=== PATIENT | male | born 1945 | race Caucasian/White ===

== ENCOUNTER 2019-08-06 11:42 | Inpatient (IN) | payer MEDICARE, OTHER ==
[~2019-08-06] VITALS: Ht 180.3 cm; Wt 84.0 kg
[2019-08-06] MEDS ORDERED: LOPR1TAB6 PO (11:59)
[2019-08-06] MEDS ORDERED: SYNT88TA2 PO (11:59)
[2019-08-06] MEDS ORDERED: BUME1TAB3 PO (11:59)
[2019-08-06] MEDS ORDERED: NORV5TAB PO (11:59)
[2019-08-06] MEDS ORDERED: PRAD150C6 PO (11:59)
[2019-08-06] MEDS ORDERED: LOSA50TA88 PO (11:59)
[2019-08-06] MEDS ORDERED: ATOR1TAB21 PO (11:59)
[2019-08-06 12:14] LABS: BASO % 0.4 % (0.0-1.0); EOS # 0.1 10^3/uL (0.0-0.5); EOS % 0.8 % (0.0-3.0); HEMATOCRIT 38.1 % (42.0-52.0); HEMOGLOBIN 12.4 g/dl (13.5-17.5); LYMPH # 1.1 10^3/uL (1.5-5.0); LYMPH % 13.3 % (24.0-44.0); MEAN CORPUSCULAR HEMOGLOBIN 30.1 pg (27.0-33.0); MEAN CORPUSCULAR HGB CONC 32.5 g/dl (32.0-36.5); MEAN CORPUSCULAR VOLUME 92.5 fl (80.0-96.0); MONO # 1.1 10^3/uL (0.0-0.8); MONO % 12.5 % (0.0-5.0); NEUTROPHILS # 6.2 10^3/uL (1.5-8.5); NEUTROPHILS % 72.8 % (36.0-66.0); PLATELET COUNT, AUTOMATED 194 10^3/uL (150-450); RED BLOOD COUNT 4.12 10^6/uL (4.30-6.10); WHITE BLOOD COUNT 8.5 10^3/uL (4.0-10.0)
[2019-08-06] MEDS ORDERED: METOPROLOL 5 MG/5 ML VIAL As Ordered ONE (12:20)
[2019-08-06] MEDS: METOPROLOL 5 MG/5 ML VIAL IV SCH ×3 (12:22→12:35)
[2019-08-06 12:24] LABS: INR 1.5; PROTHROMBIN TIME 17.8 SECONDS (11.8-14.0)
[2019-08-06 12:45] LABS: ALBUMIN 3.3 GM/DL (3.2-5.2); ALT/SGPT 26 U/L (12-78); BILIRUBIN,DIRECT 0.2 MG/DL (0.0-0.2); BILIRUBIN,TOTAL 0.8 MG/DL (0.2-1.0); BLOOD UREA NITROGEN 20 MG/DL (7-18); CARBON DIOXIDE LEVEL 29 MEQ/L (21-32); CHLORIDE LEVEL 106 MEQ/L (98-107); CK-MB VALUE MASS 2.7 NG/ML (<3.6); CPK CREATINE PHOSPHOKINASE 111 U/L (39-308); GLOMERULAR FILTRATION RATE > 60.0 (>42); GLUCOSE, FASTING 112 MG/DL (70-100); LIPASE 87 U/L (73-393); MB/CK RELATIVE INDEX 2.43 (< OR =4); NT-PRO BNP 4999 PG/ML (<450); POTASSIUM SERUM 4.1 MEQ/L (3.5-5.1); SODIUM LEVEL 140 MEQ/L (136-145); THYROID STIMULATING HORMONE < 0.005 uIU/ML (0.358-3.740); TOTAL PROTEIN 6.4 GM/DL (6.4-8.2); TROPONIN I < 0.02 NG/ML (< 0.10)
--- NOTE | 2019-08-06 12:52 | REP ---
CHEST, SINGLE VIEW: Single view of the chest is performed. I have no prior study for comparison. There is cardiomegaly and pulmonary venous hypertension. No focal infiltrate is seen. There is calcification of the thoracic aorta. Mediastinal silhouette otherwise appears unremarkable. Dual-lead pacemaker is noted. Electronically Signed by Zachary Giang MD 08/06/2019 07:44 P
[2019-08-06] MEDS ORDERED: METOPROLOL TART 50 MG TAB PO ONE ×2 (13:00→14:00)
[2019-08-06] MEDS ORDERED: VITMTA PO (14:49)
[2019-08-06] MEDS ORDERED: AMIODARONE HCL 150 MG in IV 1 EA IV STA (15:21)
[2019-08-06 15:44] VITALS: BP 122/86
[2019-08-06] MEDS ORDERED: SLF 3 ML SYR IV PRN (16:00)
[2019-08-06] MEDS ORDERED: AMIODARONE 150MG/3ML INJ (J0282) IVP STA (16:56)
[2019-08-06] MEDS ORDERED: AMIODARONE HCL 150 MG in IV 1 EA IV ONE (17:00)
--- NOTE | 2019-08-06 17:32 | HPEPDOC ---
General Date of Admission Aug 06, 2019 at 14:52 Date of Service: Aug 06, 2019 Chief Complaint The patient is a 74-year-old male admitted with a reason for visit of Aicd Present,Double Chamber,Atrial Fibrillation. Source: Patient, RN/MD History of Present Illness 74 year old male with PMH of Afib s/p ablation on anticoagulation, Systolic CHF with EF of 25% s/p AICD improved EF of 50%, CKD 3, hypertension, hypothyroid drove up from [place] last week and was in his usual state of health till yesterday when he started having palpitations. He did not have any chest pressure or any dizziness or any SOB or cough. This morning he played golf and felt that his palpitation was not improving so came to the ED. In the ED he was found to be in Afib with RVR. He was given a total of 100 mg of po metoprolol and 3 doses of IV metoprolol and patient took his own metoprolol this am till his heart rate remained uncontrolled so the patient was admitted for Afib with RVR. ED provider spoke with Dr Gross who recommended the increased dose of metoprolol and then he recommended 2 doses of IV amiodarone. Home Medications Scheduled Amlodipine Besylate (Norvasc) 5 Mg Tablet, 5 MG PO QHS, (Reported) Atorvastatin Calcium (Atorvastatin Calcium) 20 Mg Tablet, 20 MG PO QHS, (Reported) Bumetanide (Bumetanide) 1 Mg Tablet, 1 MG PO DAILY, (Reported) Dabigatran Etexilate Mesylate (Pradaxa) 150 Mg Capsule, 150 MG PO BID, (Reported) Levothyroxine Sodium (Synthroid) 88 Mcg Tablet, 88 MCG PO DAILY, (Reported) Losartan Potassium (Losartan Potassium) 50 Mg Tablet, 50 MG PO BID, (Reported) Metoprolol Tartrate (Lopressor) 50 Mg Tablet, 50 MG PO BID, (Reported) Multivitamins (Thera M Plus Tablet) 1 Each Tablet, 1 TAB PO DAILY, (Reported) Allergies Coded Allergies: amoxicillin (Verified Allergy, Unknown, 08/06/19) clavulanic acid (Verified Allergy, Unknown, 08/06/19) Past Medical History Medical History H/o Systolic CHF with EF of 25% in s/p AICD improved EF to 50% A fib s/p ablation x 2 in Thoracic aortic aneurysm. 4.9 cm hypothyroid hypertension CKD back pain Surgical History left shoulder chronic dislocation fixed. back surgery Family History Significant Family History: Cancer (brother esophageal cancer ), Heart disease (brother) Social History * Smoker: former Smoker Alcohol: other (daily one alcoholic draink) Drugs: denies Recent Travel/Sick Contacts: Reports: Recent travel (Drove up from [place] last week. ) A-FIB/CHADSVASC A-FIB History Current/History of A-Fib/PAF?: Yes Current PO Anticoag Therapy: Yes Review of Systems Constitutional: Denies: Chills, Fever, Night Sweats Eyes: Denies: Pain, Vision change ENT: Denies: Head Aches, Ear Pain, Dysphagia Skin: Denies: Rash, Lesions, Breakdown Pulmonary: Denies: Dyspnea, Cough Cardiovascular: Reports: Palpitations Gastrointestinal: Denies: Nausea, Vomiting, Abdominal Pain, Diarrhea Genitourinary: Denies: Dysuria, Frequency, Incontinence, Retention Hematologic: Denies: Bruising, Bleeding Excessively Musculoskeletal: Reports: Back Pain Neurological: Denies: Weakness, Numbness, Change in speech, Confusion Psych: Reports: Mood Normal; Denies: Depression, Memory Issues Physical Examination General Exam: Positive: Alert, Cooperative, No Acute Distress Eye Exam: Positive: PERRLA, Conjunctiva & lids normal, EOMI; Negative: Sclera icteric ENT Exam: Positive: Atraumatic, Mucous membr. moist/pink, Pharynx Normal Neck Exam: Positive: Supple; Negative: JVD, thyromegaly Chest Exam: Positive: Clear to auscultation, Normal air movement Heart Exam: Positive: Tachycardic, Irregular Rhythm Telemetry: Positive: Atrial fibrillation Abdomen Exam: Positive: Normal bowel sounds, Soft; Negative: Tenderness, Hepatospenomegaly Extremity Exam: Positive: Edema (bilateral trace edema) Skin Exam: Positive: Nl turgor and temperature; Negative: Breakdown, Lesion Neuro Exam: Positive: Normal Gait, Normal Speech, Cranial Nerves 3-12 NL, Reflexes 2+ Vital Signs Vital Signs Date Time Temp Pulse Resp B/P (MAP) Pulse Ox O2 Delivery O2 Flow Rate FiO2 08/06/19 14:09 128 161/92 08/06/19 14:00 18 98 08/06/19 13:10 Room Air 08/06/19 11:42 97.7 Laboratory Data Labs 24H Laboratory Tests 2 08/06/19 12:00: Immature Granulocyte % (Auto) 0.2, Neutrophils (%) (Auto) 72.8H, Lymphocytes (%) (Auto) 13.3L, Monocytes (%) (Auto) 12.5H, Eosinophils (%) (Auto) 0.8, Basophils (%) (Auto) 0.4, Neutrophils # (Auto) 6.2, Lymphocytes # (Auto) 1.1L, Monocytes # (Auto) 1.1H, Eosinophils # (Auto) 0.1, Basophils # (Auto) 0.0, Nucleated Red Blood Cells % (auto) 0.0, Prothrombin Time 17.8H, Prothromb Time International Ratio 1.50, Anion Gap 5L, Glomerular Filtration Rate > 60.0, Calcium Level 9.0, Magnesium Level 2.0, Total Bilirubin 0.8, Direct Bilirubin 0.2, Aspartate Amino Transf (AST/SGOT) 26, Alanine Aminotransferase (ALT/SGPT) 26, Alkaline Phosphatase 87, Total Creatine Kinase 111, Creatine Kinase MB 2.7, Creatine Kinase MB Relative Index 2.43, Troponin I < 0.02, EG-Xal-J-Type Natriuretic Peptide 4999H, Total Protein 6.4, Albumin 3.3, Albumin/Globulin Ratio 1.1, Lipase 87, Thyroid Stimulating Hormone (TSH) < 0.005L 08/06/19 12:01: POC Troponin I (Misc) 0.01 08/06/19 12:03: POC Glucose (Misc Panel) 115H, POC Sodium (Misc Panel) 140, POC Potassium (Misc Panel) 3.9, POC Chloride (Misc Panel) 102, POC Total CO2 (Misc Panel) 27.0, POC Blood Urea Nitrogen (Misc Panel 20, POC Ionized Calcium (Misc Panel) 4.6, POC Creatinine (Misc Panel) 1.2, POC Hematocrit (Misc Panel) 39.0 CBC/BMP Laboratory Tests 08/06/19 12:00 Assessment/Plan 74 year old male with PMH of Afib s/p ablation on anticoagulation, Systolic CHF with EF of 25% s/p AICD improved EF of 50%, CKD 3, hypertension, hypothyroid drove up from [place] last week and was in his usual state of health till yesterday when he started having palpitations. He did not have any chest pressure or any dizziness or any SOB or cough. This morning he played golf and felt that his palpitation was not improving so came to the ED. In the ED he was found to be in Afib with RVR. He was given a total of 100 mg of po metoprolol and 3 doses of IV metoprolol and patient took his own metoprolol this am till his heart rate remained uncontrolled so the patient was admitted for Afib with RVR. ED provider spoke with Dr Gross who recommended the increased dose of metoprolol and then he recommended 2 doses of IV amiodarone. A fib with RVR received total of 150 mg of metoprolol po and 3 doses of IV metoprolol will give IV amiodarone followed by po amiodarone. patient used to be on amiodarone but was taken off it after 4 years last fall. telemetry. Pradexa, metoprolol. His TSH is very low this may be contributing. Systolic CHF Last reported EF of 50% improved from 25% [place] [address] no gross fluid overload at this time though pro BNP is elevated. will continue to monitor continue Bumetanide Hypertension continue losartan and metoprolol Hypothyroid TSH very low will check Ft3, and Ft4. will decrease synthroid from 88 to 75 mcg Plan / VTE VTE Prophylaxis Ordered?: Yes OFELIA MARTÍNEZ MD Aug 06, 2019 15:39
[2019-08-06 20:00] VITALS: BP 141/79
[2019-08-06] MEDS: amLODIPine 5 MG TAB PO SCH (20:13)
[2019-08-06] MEDS: DABIGATRAN ETEXILATE 75 MG CAP (PRADAXA) PO SCH (20:13)
[2019-08-06] MEDS: ATORVASTATIN 20 MG TAB PO SCH (20:13)
[2019-08-06] MEDS: DOCUSATE SODIUM 100 MG CAP PO SCH (20:13)
[2019-08-06] MEDS: LOSARTAN 50MG TABLET PO SCH (20:14)
[2019-08-06] MEDS: METOPROLOL TART 50 MG TAB PO SCH (20:15)
[2019-08-06] MEDS: SLF 3 ML SYR IV SCH (20:15)
[2019-08-07] VITALS: BP 124/89
[2019-08-07 04:00] VITALS: BP 147/85
[2019-08-07] MEDS ORDERED: LEVOTHYROXINE 75MCG TABLET (0.075MG) PO SCH (06:00)
[2019-08-07 06:36] LABS: BASO % 0.5 % (0.0-1.0); EOS # 0.3 10^3/uL (0.0-0.5); EOS % 3.6 % (0.0-3.0); HEMATOCRIT 36.2 % (42.0-52.0); LYMPH # 1.1 10^3/uL (1.5-5.0); LYMPH % 13.7 % (24.0-44.0); MEAN CORPUSCULAR HEMOGLOBIN 30.4 pg (27.0-33.0); MEAN CORPUSCULAR HGB CONC 33.1 g/dl (32.0-36.5); MEAN CORPUSCULAR VOLUME 91.6 fl (80.0-96.0); MONO # 1.1 10^3/uL (0.0-0.8); MONO % 14.1 % (0.0-5.0); NEUTROPHILS # 5.4 10^3/uL (1.5-8.5); NEUTROPHILS % 67.7 % (36.0-66.0); PLATELET COUNT, AUTOMATED 182 10^3/uL (150-450); RED BLOOD COUNT 3.95 10^6/uL (4.30-6.10)
[2019-08-07] MEDS: SLF 3 ML SYR IV SCH ×3 (06:44→20:14)
[2019-08-07 07:17] LABS: BLOOD UREA NITROGEN 15 MG/DL (7-18); CALCIUM LEVEL 8.5 MG/DL (8.8-10.2); CARBON DIOXIDE LEVEL 29 MEQ/L (21-32); CHLORIDE LEVEL 108 MEQ/L (98-107); CREATININE FOR GFR 1.01 MG/DL (0.70-1.30); FREE T3 6.3 PG/ML (2.2-4.0); FREE T4 2.58 NG/DL (0.76-1.46); GLOMERULAR FILTRATION RATE > 60.0 (>42); GLUCOSE, FASTING 98 MG/DL (70-100); POTASSIUM SERUM 3.7 MEQ/L (3.5-5.1); SODIUM LEVEL 142 MEQ/L (136-145)
[2019-08-07 07:31] VITALS: BP 138/92
[2019-08-07] MEDS: MULTIVITAMINS/MINERALS THERAP 1 TAB PO SCH (08:34)
[2019-08-07] MEDS: BUMETANIDE 1 MG TAB PO SCH (08:35)
[2019-08-07] MEDS: AMIODARONE 200 MG TAB (PACERONE) PO SCH ×2 (08:35→20:14)
[2019-08-07] MEDS: LOSARTAN 50MG TABLET PO SCH ×2 (08:35→20:12)
[2019-08-07] MEDS: METOPROLOL TART 50 MG TAB PO SCH (08:36)
[2019-08-07] MEDS: DOCUSATE SODIUM 100 MG CAP PO SCH ×2 (08:36→20:14)
[2019-08-07] MEDS: DABIGATRAN ETEXILATE 75 MG CAP (PRADAXA) PO SCH ×2 (08:36→20:12)
[2019-08-07 08:42] LABS: THYROID STIMULATING HORMONE 0.006 uIU/ML (0.358-3.740)
[2019-08-07 11:34] VITALS: BP 135/77
--- NOTE | 2019-08-07 13:31 | REP ---
REASON: Abnormal thyroid laboratory values. Right lobe of the thyroid gland measures 4.4 x 1.7 x 2.4 cm. Left lobe measures 4.1 x 1.4 x 1.7 cm. The isthmus measures 5 mm. In the right lobe of the thyroid gland, there is a 1.4 x 1 x 0.9-cm sized cystic and solid-appearing nodule. There are no other nodules noted. IMPRESSION: As above. Electronically Signed by Santos Abad DO 08/07/2019 05:03 P
--- NOTE | 2019-08-07 13:46 | ECHO ---
DATE OF PROCEDURE: 08/06/2019 DATE OF : 1945 AGE: 74 GENDER: Male HEIGHT: 71 inches WEIGHT: 189 pounds BODY SURFACE AREA: 2.06 m2 INPATIENT: PCU Room 3227 REFERRING PHYSICIAN: Dr. Mariana Monk INDICATION: Cardiac dysrhythmias. MEASUREMENTS: 2-D Measurements: RV: 4.2 cm LV: 4.8 cm Septum: 1.2 cm Posterior wall: 1.2 cm Aortic root: 4.2 cm Ascending aorta: 4.6 cm LA: 4.8 cm LVEF: 50-55% Doppler Measurements: AV: 1.1 m/sec LVOT: 0.8 m/sec LVOT diameter: 2.0 cm MV - E: 96 Early mitral deceleration time: 176 ms E prime medial: 5.6, E prime lateral: 8.6 Average E/E prime ratio: 13.5/PCWP 18.7 mmHg PV: 0.75 m/sec Pulmonary artery acceleration time: 95 ms RVSP: 38 mmHg IVC: 2.2 cm COMMENTS: Underlying atrial fibrillation with spontaneous narrow QRS complexes alternating with appropriate ventricular paced complexes average ventricular rate in the 90s per minute. Paced QRS complexes having an LVEDP configuration. M-mode and two-dimensional echocardiography was performed with pulsed, continuous wave, color flow and tissue Doppler studies. Borderline concentric left ventricle hypertrophy with intermittent mild septal and apical wall motion abnormality with right ventricular paced complexes but fairly normal-appearing wall motion with spontaneous narrow QRS complexes. Overall global resting systolic function is retained. Moderately dilated left atrium with at least mildly elevated estimated mean left atrial pressure. Normal right ventricular size and motion with Doppler evidence of mild pulmonary hypertension. Right atrium appeared to be mildly enlarged as did the inferior vena cava with slightly reduced respiratory collapse of the inferior vena cava suggestive of mean left atrial pressure of perhaps 10 mmHg. Mildly dilated aortic root and moderately dilated ascending aorta. Mild aortic valvular sclerosis without stenosis and only very mild to trace aortic insufficiency. Mild degenerative changes of his mitral valvular apparatus without LV inflow tract obstruction and no more than very mild insufficiency. Normal-appearing tricuspid valve with very mild insufficiency. Pacing leads could be visualized traversing right heart structures but no separate intracardiac mass. No pericardial effusion. MTDD
--- NOTE | 2019-08-07 14:54 | IPNPDOC ---
Text Note Date of Service The patient was seen on 08/07/19. NOTE Subjective: Patient is 74. Will male with a PMHx A. fib (s/p Ablation, on Pradaxa), Systolic CHF (EF: 25%) s/p AICD (improved to EF 50%), HTN, Hypothyroid ism, CKD3, who presented to the hospital after experiencing palpitations. Patient reported that he is recently from [place] approximately one week ago. Upon arrival to emergency room, patient was found to be in A. fib with RVR and was admitted to the hospital service for further evaluation and treatment. Case was discussed with strategic sourcing consultant, Dr. Gross, who had recommended resuming his amiodarone that was stopped 9 months prior. Patient also had lab work that revealed significantly suppressed TSH level. Patient was seen and examined at the bedside. Currently, patient reports that he's feeling slightly better but still experiences occasional palpitations. He denies any chest pain, shortness of breath, nausea, vomiting, abdominal pain, diarrhea, or urinary discomfort. Objective: Vitals (See below) General: Lying in bed, appears comfortable, AAOx3 HEENT: NC, AT CVS: +S1S2 Lungs: Fair air entry b/l, auscultation is without rhonchi, crackles or wheezing Abdomen: Soft, ND, NT Extremities: - Edema, - Calf tenderness Assessment and plan: A fib with RVR - Etiology unclear; possibly 2/2 hyperthyroid state? - Patient has reported some improvement of his palpitations - Denies any CP, SOB - Heart rate remains fluctuating between 80-120s - Cardiac markers negative - s/p Amiodarone IV - c/w Amiodarone / Metoprolol (at increased dose) - c/w full anticoagulation with Pradaxa Chronic, Systolic CHF - No evidence of fluid overload, appears compensated - Last reported EF of 50% improved from 25% after AICD in 2003 - ECHO 08/05: EF 50-55% - c/w Bumetanide HTN - BP well controlled - c/w Losartan and Amlodipine - Will increase dose of Metoprolol DLP - c/w Atorvastatin Hypothyroidism as an outpatient - TSH noted to be significantly suppressed; free T4 and total T3 elevated - Will check thyroid US - Will discontinue Synthroid DVT prophylaxis - c/w full anticoagulation with Pradaxa Disposition: - Will have PT / OT evaluation completed - Awaiting heart rate optimization VS,Fishbone, I+O VS, Fishbone, I+O Laboratory Tests 08/07/19 06:03 Vital Signs Date Time Temp Pulse Resp B/P (MAP) Pulse Ox O2 Delivery O2 Flow Rate FiO2 08/07/19 11:34 97.5 105 18 135/77 (96) Room Air 08/07/19 07:31 95 I&O- Last 24 Hours up to 6 AM 08/07/19 06:00 Intake Total 440 ml Output Total 1550 ml Balance -1110 ml JOSE ROSENTHAL MD Aug 07, 2019 14:54
[2019-08-07 15:13] VITALS: BP 121/74
[2019-08-07 20:00] VITALS: BP 147/94
[2019-08-07] MEDS: METOPROLOL TARTRATE 100 MG TAB PO SCH (20:13)
[2019-08-07] MEDS: ATORVASTATIN 20 MG TAB PO SCH (20:14)
[2019-08-07] MEDS: amLODIPine 5 MG TAB PO SCH (20:14)
[2019-08-08] VITALS: BP 136/75
[2019-08-08 04:00] VITALS: BP 138/87
[2019-08-08 05:28] LABS: BASO % 0.3 % (0.0-1.0); EOS # 0.3 10^3/uL (0.0-0.5); EOS % 3.8 % (0.0-3.0); HEMATOCRIT 37.2 % (42.0-52.0); HEMOGLOBIN 12.5 g/dl (13.5-17.5); LYMPH # 1.2 10^3/uL (1.5-5.0); LYMPH % 16.9 % (24.0-44.0); MEAN CORPUSCULAR HEMOGLOBIN 30.5 pg (27.0-33.0); MEAN CORPUSCULAR HGB CONC 33.6 g/dl (32.0-36.5); MEAN CORPUSCULAR VOLUME 90.7 fl (80.0-96.0); MONO # 1.2 10^3/uL (0.0-0.8); MONO % 15.7 % (0.0-5.0); NEUTROPHILS # 4.6 10^3/uL (1.5-8.5); NEUTROPHILS % 62.8 % (36.0-66.0); PLATELET COUNT, AUTOMATED 182 10^3/uL (150-450); WHITE BLOOD COUNT 7.3 10^3/uL (4.0-10.0)
[2019-08-08 05:48] LABS: BLOOD UREA NITROGEN 15 MG/DL (7-18); CALCIUM LEVEL 8.4 MG/DL (8.8-10.2); CARBON DIOXIDE LEVEL 29 MEQ/L (21-32); CHLORIDE LEVEL 107 MEQ/L (98-107); GLOMERULAR FILTRATION RATE > 60.0 (>42); GLUCOSE, FASTING 101 MG/DL (70-100); POTASSIUM SERUM 3.6 MEQ/L (3.5-5.1); SODIUM LEVEL 142 MEQ/L (136-145)
--- NOTE | 2019-08-08 06:23 | ECGEPIP ---
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: : 1945 Requested By: Althea Perdomo Order Number: [id number] Reading MD: Corky Green Measurements Intervals Dexter Rate: 120 P: UT: 0 QRS: -36 QRSD: 106 T: 114 QT: 310 QTc: 438 Interpretive Statements UNCERTAIN IRREGULAR RHYTHM ELECTRONIC VENTRICULAR PACEMAKER -- CONTOUR ANALYSIS BASED ON INTRINSIC RHYTHM MARKED LEFT AXIS DEVIATION LEFT VENTRICULAR HYPERTROPHY AND ST-T CHANGE POSSIBLE ANTERIOR MYOCARDIAL INFARCTION, OF INDETERMINATE AGE NONSPECIFIC ST T WAVE CHANGES DELAYED R WAVE PROGRESSION PVCS NO PRIOR ECG FOR COMPARISON Electronically Signed on 08-08-2019 6:23:11 EDT by Corky Green
[2019-08-08] MEDS: SLF 3 ML SYR IV SCH ×3 (06:45→20:17)
[2019-08-08 07:36] VITALS: BP 148/94
[2019-08-08] MEDS: LOSARTAN 50MG TABLET PO SCH ×2 (08:14→20:15)
[2019-08-08] MEDS: DOCUSATE SODIUM 100 MG CAP PO SCH ×2 (08:14→20:15)
[2019-08-08] MEDS: MULTIVITAMINS/MINERALS THERAP 1 TAB PO SCH (08:14)
[2019-08-08] MEDS: METOPROLOL TARTRATE 100 MG TAB PO SCH ×2 (08:14→20:16)
[2019-08-08] MEDS: BUMETANIDE 1 MG TAB PO SCH (08:14)
[2019-08-08] MEDS: DABIGATRAN ETEXILATE 75 MG CAP (PRADAXA) PO SCH ×2 (08:15→20:17)
[2019-08-08] MEDS: AMIODARONE 200 MG TAB (PACERONE) PO SCH ×4 (08:15→20:15)
--- NOTE | 2019-08-08 08:53 | IPNPDOC ---
Text Note Date of Service The patient was seen on 08/08/19. NOTE Subjective: Patient was seen and examined at the bedside. Currently, patient r eports that he's feeling slightly better but still experiences occasional palpitations. He denies any chest pain, shortness of breath, nausea, vomiting, abdominal pain, diarrhea, or urinary discomfort. Objective: Vitals (See below) General: sitting by the side of the bed, appears comfortable, AAOx3 HEENT: NC, AT CVS: +S1S2 Lungs: Fair air entry b/l, auscultation is without rhonchi, crackles or wheezing Abdomen: Soft, ND, NT, normal bowel sounds. Extremities: trace Edema at left ankle, - Calf tenderness Assessment and plan: Patient is 74. Will male with a PMHx A. fib (s/p Ablation, on Pradaxa), Systolic CHF (EF: 25%) s/p AICD (improved to EF 50%), HTN, Hypothyroidism, CKD3, who presented to the hospital after experiencing palpitations. Patient reported that he is recently from [place] approximately one week ago. Upon arrival to emergency room, patient was found to be in A. fib with RVR and was admitted to the hospital service for further evaluation and treatment. Case was discussed with supervisor cell operation, Dr. Gross, who had recommended resuming his amiodarone that was stopped 9 months prior. Patient also had lab work that revealed significantly suppressed TSH level. A fib with RVR - Etiology unclear; possibly 2/2 hyperthyroid state? - Patient has reported some improvement of his palpitations - Denies any CP, SOB - Heart rate remains fluctuating between 80-120s - Cardiac markers negative - s/p Amiodarone IV - c/w Amiodarone / Metoprolol. Dose of amiodarone increased. Metoprolol increased form home dosage. - c/w full anticoagulation with Pradaxa Chronic, Systolic CHF - No evidence of fluid overload, appears compensated - Last reported EF of 50% improved from 25% after AICD in 2003 - ECHO 08/05: EF 50-55% - c/w Bumetanide HTN - BP well controlled - c/w Losartan and Amlodipine , metoprolol. DLP - c/w Atorvastatin Hypothyroidism as an outpatient - Patient reports that it started last year around June and he was started on medications. Since then his Amiodarone have been stopped. Amiodrone may have caused the hypothyroid. Now as he has been off amiodarone he has become hyperthyroid from the Synthroid. - TSH noted to be significantly suppressed; free T4 and total T3 elevated - thyroid US shows a thyroid nodule in the right lobe with mixed cystic and solid component . Outpatient follow up. - Will discontinue Synthroid DVT prophylaxis - c/w full anticoagulation with Pradaxa Disposition: - Will have PT / OT evaluation completed - Awaiting heart rate optimization VS,[facility], I+O VS, Siani, I+O Laboratory Tests 08/08/19 04:49 Vital Signs Date Time Temp Pulse Resp B/P (MAP) Pulse Ox O2 Delivery O2 Flow Rate FiO2 08/08/19 08:14 117 08/08/19 08:14 148/94 08/08/19 07:36 97.4 18 93 Room Air I&O- Last 24 Hours up to 6 AM 08/08/19 05:59 Intake Total 1680 ml Output Total 3450 ml Balance -1770 ml OFELIA MARTÍNEZ MD Aug 08, 2019 08:53
[2019-08-08 11:48] VITALS: BP 123/79
[2019-08-08 15:55] VITALS: BP 113/71
[2019-08-08 20:00] VITALS: BP 131/80
[2019-08-08] MEDS: ATORVASTATIN 20 MG TAB PO SCH (20:15)
[2019-08-08] MEDS: amLODIPine 5 MG TAB PO SCH (20:16)
[2019-08-09] VITALS: BP 130/78
[2019-08-09 04:00] VITALS: BP 151/85
[2019-08-09 05:06] LABS: BASO % 0.4 % (0.0-1.0); EOS # 0.2 10^3/uL (0.0-0.5); EOS % 3.2 % (0.0-3.0); HEMATOCRIT 34.5 % (42.0-52.0); HEMOGLOBIN 11.4 g/dl (13.5-17.5); LYMPH # 1.6 10^3/uL (1.5-5.0); LYMPH % 22.8 % (24.0-44.0); MEAN CORPUSCULAR HEMOGLOBIN 30.2 pg (27.0-33.0); MEAN CORPUSCULAR VOLUME 91.5 fl (80.0-96.0); MONO # 1.3 10^3/uL (0.0-0.8); MONO % 17.6 % (0.0-5.0); NEUTROPHILS % 55.7 % (36.0-66.0); PLATELET COUNT, AUTOMATED 174 10^3/uL (150-450); RED BLOOD COUNT 3.77 10^6/uL (4.30-6.10); WHITE BLOOD COUNT 7.1 10^3/uL (4.0-10.0)
[2019-08-09 05:32] LABS: BLOOD UREA NITROGEN 16 MG/DL (7-18); CALCIUM LEVEL 8.4 MG/DL (8.8-10.2); CARBON DIOXIDE LEVEL 30 MEQ/L (21-32); CHLORIDE LEVEL 109 MEQ/L (98-107); CREATININE FOR GFR 1.02 MG/DL (0.70-1.30); GLOMERULAR FILTRATION RATE > 60.0 (>42); GLUCOSE, FASTING 101 MG/DL (70-100); POTASSIUM SERUM 3.8 MEQ/L (3.5-5.1); SODIUM LEVEL 144 MEQ/L (136-145)
[2019-08-09] MEDS: SLF 3 ML SYR IV SCH ×3 (06:16→20:58)
[2019-08-09 08:00] VITALS: BP 118/86
[2019-08-09] MEDS: BUMETANIDE 1 MG TAB PO SCH (08:59)
[2019-08-09] MEDS: LOSARTAN 50MG TABLET PO SCH ×2 (09:00→20:56)
[2019-08-09] MEDS: DABIGATRAN ETEXILATE 75 MG CAP (PRADAXA) PO SCH ×2 (09:00→20:55)
[2019-08-09] MEDS: AMIODARONE 200 MG TAB (PACERONE) PO SCH (09:00)
[2019-08-09] MEDS: METOPROLOL TARTRATE 100 MG TAB PO SCH ×2 (09:00→20:57)
[2019-08-09] MEDS: MULTIVITAMINS/MINERALS THERAP 1 TAB PO SCH (09:00)
[2019-08-09] MEDS: DOCUSATE SODIUM 100 MG CAP PO SCH ×2 (09:00→20:54)
--- NOTE | 2019-08-09 10:28 | IPNPDOC ---
Text Note Date of Service The patient was seen on 08/09/19. NOTE Subjective: Patient was seen and examined at the bedside. Says has some interm ittent palpitations at rest but not while he is walking. No other complaints. His pulse if about 100 to 110 at rest and 120 to 130 when ambulating. Objective: Vitals (See below) General: sitting by the side of the bed, appears comfortable, AAOx3 HEENT: NC, AT CVS: +S1S2 Lungs: Fair air entry b/l, auscultation is without rhonchi, crackles or wheezing Abdomen: Soft, ND, NT, normal bowel sounds. Extremities: trace Edema at left ankle, - Calf tenderness Labs and Radiology : reviewed. Assessment and plan: Patient is 74. Will male with a PMHx A. fib (s/p Ablation, on Pradaxa), Systolic CHF (EF: 25%) s/p AICD (improved to EF 50%), HTN, Hypothyroidism, CKD3, who presented to the hospital after experiencing palpitations. Patient reported that he is recently from [place] approximately one week ago. Upon arrival to emergency room, patient was found to be in A. fib with RVR and was admitted to the hospital service for further evaluation and treatment. Case was discussed with middleware developer, Dr. Gross, who had recommended resuming his amiodarone that was stopped 9 months prior. Patient also had lab work that revealed significantly suppressed TSH level. A fib with RVR Etiology unclear; possibly 2/2 hyperthyroid state? Heart rate remains fluctuating between 90-130s Cardiac markers negative s/p Amiodarone IV , oral amiodarone Discussed pateitn with Dr Godoy. Or approach should be rate control and we should avoid amiodarone as he had developed toxicity to it. If recommended digoxin loading. will stop amiodarone. Digoxin 0.5+ 0.25+0.25 Continue metoprolol 100 bid c/w full anticoagulation with Pradaxa Chronic, Systolic CHF No evidence of fluid overload, appears compensated Last reported EF of 50% improved from 25% after AICD in 2013 ECHO 08/05: EF 50-55% c/w Bumetanide HTN BP well controlled c/w Losartan and Amlodipine , metoprolol. DLP c/w Atorvastatin Hypothyroidism as an outpatient Patient reports that it started last year around June and he was started on medications. Since then his Amiodarone have been stopped. Amiodarone may have caused the hypothyroid. Now as he has been off amiodarone he has become hyperthyroid from the Synthroid. TSH noted to be significantly suppressed; free T4 and total T3 elevated thyroid US shows a thyroid nodule in the right lobe with mixed cystic and solid component . Outpatient follow up. Will discontinue Synthroid DVT prophylaxis c/w full anticoagulation with Pradaxa Disposition: Will have PT / OT evaluation completed Awaiting heart rate optimization VS,Sinai, I+O VS, [place], I+O Laboratory Tests 08/09/19 04:42 Vital Signs Date Time Temp Pulse Resp B/P (MAP) Pulse Ox O2 Delivery O2 Flow Rate FiO2 08/09/19 08:00 98.2 113 19 118/86 (97) 97 Room Air I&O- Last 24 Hours up to 6 AM 08/09/19 05:59 Intake Total 1560 ml Output Total 3500 ml Balance -1940 ml OFELIA MARTÍNEZ MD Aug 09, 2019 10:28
[2019-08-09] MEDS ORDERED: DIGOXIN INJ 0.5 MG/2 ML AMP (J1160) IV ONE ×2 (10:30→12:30)
[2019-08-09 12:00] VITALS: BP 132/70
[2019-08-09 16:00] VITALS: BP 136/62
[2019-08-09 20:00] VITALS: BP 150/68
[2019-08-09] MEDS: ATORVASTATIN 20 MG TAB PO SCH (20:55)
[2019-08-09] MEDS: amLODIPine 5 MG TAB PO SCH (20:55)
[2019-08-10] VITALS: BP 130/60
[2019-08-10 04:00] VITALS: BP 140/68
[2019-08-10] MEDS: SLF 3 ML SYR IV SCH ×2 (05:24→12:33)
[2019-08-10 05:58] LABS: BASO % 0.3 % (0.0-1.0); EOS # 0.3 10^3/uL (0.0-0.5); EOS % 4.4 % (0.0-3.0); HEMATOCRIT 35.6 % (42.0-52.0); HEMOGLOBIN 11.8 g/dl (13.5-17.5); LYMPH # 1.3 10^3/uL (1.5-5.0); LYMPH % 16.3 % (24.0-44.0); MEAN CORPUSCULAR HEMOGLOBIN 30.3 pg (27.0-33.0); MEAN CORPUSCULAR HGB CONC 33.1 g/dl (32.0-36.5); MEAN CORPUSCULAR VOLUME 91.3 fl (80.0-96.0); MONO # 1.3 10^3/uL (0.0-0.8); NEUTROPHILS # 4.9 10^3/uL (1.5-8.5); NEUTROPHILS % 62.7 % (36.0-66.0); PLATELET COUNT, AUTOMATED 178 10^3/uL (150-450); WHITE BLOOD COUNT 7.8 10^3/uL (4.0-10.0)
[2019-08-10 06:18] LABS: BLOOD UREA NITROGEN 17 MG/DL (7-18); CALCIUM LEVEL 8.3 MG/DL (8.8-10.2); CARBON DIOXIDE LEVEL 30 MEQ/L (21-32); CHLORIDE LEVEL 110 MEQ/L (98-107); CREATININE FOR GFR 1.07 MG/DL (0.70-1.30); GLOMERULAR FILTRATION RATE > 60.0 (>42); GLUCOSE, FASTING 93 MG/DL (70-100); POTASSIUM SERUM 3.6 MEQ/L (3.5-5.1); SODIUM LEVEL 145 MEQ/L (136-145)
[2019-08-10 08:00] VITALS: BP 142/84
[2019-08-10 08:59] VITALS: BP 142/84
[2019-08-10] MEDS: METOPROLOL TARTRATE 100 MG TAB PO SCH (08:59)
[2019-08-10] MEDS: MULTIVITAMINS/MINERALS THERAP 1 TAB PO SCH (08:59)
[2019-08-10] MEDS: LOSARTAN 50MG TABLET PO SCH (08:59)
[2019-08-10] MEDS ORDERED: DIGOXIN 0.25 MG TAB PO SCH (09:00)
[2019-08-10] MEDS: DOCUSATE SODIUM 100 MG CAP PO SCH (09:00)
[2019-08-10] MEDS ORDERED: LIDOCAINE 1% MDV 20ML VIAL As Ordered ONE (10:53)
[2019-08-10 12:00] VITALS: BP 142/86
[2019-08-10] MEDS: BUMETANIDE 1 MG TAB PO SCH (12:32)
[2019-08-10] MEDS: DABIGATRAN ETEXILATE 75 MG CAP (PRADAXA) PO SCH (12:32)
[2019-08-10] MEDS ORDERED: LOPR1TAB6 PO (12:39)
[2019-08-10] MEDS ORDERED: DIGO0.253 PO (12:39)
--- NOTE | 2019-08-10 15:17 | DS.PDOC ---
Discharge Summary General Date of Admission Aug 06, 2019 at 14:52 Date of Discharge 08/10/19 Discharge Summary PROCEDURES PERFORMED DURING STAY: [None]. DISCHARGE DIAGNOSES: Atrial fibrillation with RVR. Chronic Systolic CHF. SECONDARY DIAGNOSIS: H/o Systolic CHF with EF of 25% in s/p AICD improved EF to 50% A fib s/p ablation x 2 in Thoracic aortic aneurysm. 4.9 cm hypothyroid hypertension CKD back pain COMPLICATIONS/CHIEF COMPLAINT: AICD Present,Double Chamber,Atrial Fibrillation. HISTORY OF PRESENT ILLNESS: See history and physical HOSPITAL COURSE: Patient is 74. Will male with a PMHx A. fib (s/p Ablation, on Pradaxa), Systolic CHF (EF: 25%) s/p AICD (improved to EF 50%), HTN, Hypothyroidism, CKD3, who presented to the hospital after experiencing palpitations. Patient reported that he is recently from [place] approximately one week ago. Upon arrival to emergency room, patient was found to be in A. fib with RVR and was admitted to the hospital service for further evaluation and treatment. Case was discussed with quality manager, Dr. Gross, who had recommended resuming his amiodarone that was stopped 9 months prior. Patient also had lab work that revealed significantly suppressed TSH level. A fib with RVR Etiology unclear; possibly 2/2 hyperthyroid state? Heart rate now controlled. Remains in Afib. Cardiac markers negative s/p Amiodarone IV , s/p oral amiodarone as per discussion with Dr Gross. Now stopped. Discussed patient again with Dr Godoy as pulse rate was not well controlled. As per Dr Godoy Our approach should be rate control and we should avoid amiodarone as he had developed toxicity to it. He recommended digoxin loading. Patient was loaded with digoxin and started on digoxin 0.25 daily. Continue metoprolol 100 bid c/w full anticoagulation with Pradaxa Chronic, Systolic CHF No evidence of fluid overload, appears compensated Last reported EF of 50% improved from 25% after AICD in 2013 ECHO 08/05: EF 50-55% c/w Bumetanide HTN BP well controlled c/w Losartan and Amlodipine , metoprolol. DLP c/w Atorvastatin Hypothyroidism as an outpatient now hyperthyroid. Patient reports that it started last year around June and he was started on medications. Since then his Amiodarone have been stopped. Amiodarone may have caused the hypothyroid. Now as he has been off amiodarone he has become hyperthyroid from the Synthroid. TSH noted to be significantly suppressed; free T4 and total T3 elevated thyroid US shows a thyroid nodule in the right lobe with mixed cystic and solid component. Will discontinue Synthroid Had US guided FNAC on 08/10/19 DVT prophylaxis c/w full anticoagulation with Pradaxa Disposition: Will have PT / OT evaluation completed Awaiting heart rate optimization DISCHARGE MEDICATIONS: Please see below. ALLERGIES: Please see below. PHYSICAL EXAMINATION ON DISCHARGE: VITAL SIGNS: Please see below. General: sitting by the side of the bed, appears comfortable, AAOx3 HEENT: NC, AT CVS: +S1S2, no rub or murmur, rate normal, irregularly erregular. Lungs: Fair air entry b/l, auscultation is without rhonchi, crackles or wheezing Abdomen: Soft, ND, NT, normal bowel sounds. Extremities: trace Edema at left ankle, - Calf tenderness LABORATORY DATA: Please see below. IMAGING: Thyroid US: Right lobe of the thyroid gland measures 4.4 x 1.7 x 2.4 cm. Left lobe measures 4.1 x 1.4 x 1.7 cm. The isthmus measures 5 mm. In the right lobe of the thyroid gland, there is a 1.4 x 1 x 0.9-cm sized cystic and solid-appearing nodule. ACTIVITY: [As tolerated]. DIET: As tolerated DISCHARGE PLAN: Home DISPOSITION: . DISCHARGE INSTRUCTIONS: Referred to new PMD in 1 to 2 weeks ITEMS TO FOLLOWUP ON ON OUTPATIENT: Digoxin level. Thyroid profile FNAC report of Thyroid nodule aspiration. DISCHARGE CONDITION: [Stable]. TIME SPENT ON DISCHARGE: 35 minutes. Vital Signs/I&Os Vital Signs Date Time Temp Pulse Resp B/P (MAP) Pulse Ox O2 Delivery O2 Flow Rate FiO2 08/10/19 12:00 97.5 87 18 142/86 (104) 97 Room Air I&O- Last 24 Hours up to 6 AM 08/10/19 06:59 Intake Total 1740 ml Output Total 3575 ml Balance -1835 ml Laboratory Data Labs 24H Laboratory Tests 2 08/10/19 05:19: Immature Granulocyte % (Auto) 0.3, Neutrophils (%) (Auto) 62.7, Lymphocytes (%) (Auto) 16.3L, Monocytes (%) (Auto) 16.0H, Eosinophils (%) (Auto) 4.4H, Basophils (%) (Auto) 0.3, Neutrophils # (Auto) 4.9, Lymphocytes # (Auto) 1.3L, Monocytes # (Auto) 1.3H, Eosinophils # (Auto) 0.3, Basophils # (Auto) 0.0, Nucleated Red Blood Cells % (auto) 0.0, Anion Gap 5L, Glomerular Filtration Rate > 60.0, Calcium Level 8.3L CBC/BMP Laboratory Tests 08/10/19 05:19 Discharge Medications Scheduled Amlodipine Besylate (Norvasc) 5 Mg Tablet, 5 MG PO QHS, (Reported) Atorvastatin Calcium (Atorvastatin Calcium) 20 Mg Tablet, 20 MG PO QHS, (Reported) Bumetanide (Bumetanide) 1 Mg Tablet, 1 MG PO DAILY, (Reported) Dabigatran Etexilate Mesylate (Pradaxa) 150 Mg Capsule, 150 MG PO BID, (Reported) Digoxin (Digoxin) 250 Mcg Tablet, 0.25 MG PO DAILY Losartan Potassium (Losartan Potassium) 50 Mg Tablet, 50 MG PO BID, (Reported) Metoprolol Tartrate (Lopressor) 50 Mg Tablet, 100 MG PO BID Multivitamins (Thera M Plus Tablet) 1 Each Tablet, 1 TAB PO DAILY, (Reported) Allergies Coded Allergies: amoxicillin (Verified Allergy, Unknown, 08/06/19) clavulanic acid (Verified Allergy, Unknown, 08/06/19) OFELIA MARTÍNEZ MD Aug 10, 2019 15:17
--- NOTE | 2019-08-10 21:34 | REP ---
ULTRASOUND-GUIDED RIGHT THYROID BIOPSY The procedure was performed under the direct supervision of Dr. Giang. The patient has a history of A 1.4 x 1 x 0.9 cm cystic and solid appearing nodule in the right lobe of the thyroid seen on a previous ultrasound dated 08/07/2019. The risks and benefits of the procedure were explained to the patient and informed consent was obtained. The right thyroid nodule was localized using ultrasound guidance. The skin was prepped and draped in a sterile fashion. 1% lidocaine was used as a local anesthetic. Using ultrasound guidance four fine-needle aspirations were obtained using 25 gauge needles. The patient tolerated the procedure well and there were no immediate complications. After the appropriate amount of monitored convalescence the patient was discharged from the department. Electronically Signed by ANA Martinez 08/10/2019 04:23 P Electronically Signed by Zachary Giang MD 08/10/2019 09:25 P
== END 2019-08-10 13:05 | disposition home or self-care (01) | DRG 309 ==
LOC: M ED 11:42 → M ED INP 14:52 → ENRESERV 15:07 → M PCU 15:44
PROVIDERS: ADMIT Internal Medicine Nephrology; ATTEND Internal Medicine Nephrology
PROC: 0GBH3ZX Excision of Right Thyroid Gland Lobe, Percutaneous Approach, Diagnostic (ICD-10-PCS; principal; 2019-08-10 14:30)
DX: I48.91 Unspecified atrial fibrillation (principal); I50.22 Chronic systolic (congestive) heart failure; I13.0 Hypertensive heart and chronic kidney disease with heart failure and stage 1 through stage 4 chronic kidney disease, or unspecified chronic kidney disease; N18.3 Chronic kidney disease, stage 3 (moderate); I71.4 Abdominal aortic aneurysm, without rupture; E05.00 Thyrotoxicosis with diffuse goiter without thyrotoxic crisis or storm; Z79.899 Other long term (current) drug therapy; Z79.01 Long term (current) use of anticoagulants; Z88.0 Allergy status to penicillin; Z88.8 Allergy status to other drugs, medicaments and biological substances; Z87.891 Personal history of nicotine dependence

== ENCOUNTER → 2019-08-17 | Outpatient (REF) | payer MEDICARE, OTHER ==
[~2019-08-17] MED LIST: ASPI81CH33 PO; ATOR1TAB21 PO; BUME1TAB3 PO; CEFU50TA PO; DIGO0.253 PO; DOXY-350 PO; FISH1000 PO; GLUC1TAB58 PO; LOPR1TAB6 PO; LOSA50TA88 PO; METH10TA PO; METO100T5 PO; NORV5TAB PO; PRAD150C6 PO; PRES10CA2 PO; SYNT88TA2 PO; VITMTA PO; XARE15TA PO
[2019-08-17 18:51] LABS: BLOOD UREA NITROGEN 22 MG/DL (7-18); CALCIUM LEVEL 8.7 MG/DL (8.8-10.2); CARBON DIOXIDE LEVEL 29 MEQ/L (21-32); CHLORIDE LEVEL 105 MEQ/L (98-107); CREATININE FOR GFR 1.09 MG/DL (0.70-1.30); DIGOXIN LEVEL 1.6 NG/ML (0.5-2.0); FREE T4 2.62 NG/DL (0.76-1.46); GLOMERULAR FILTRATION RATE > 60.0 (>42); GLUCOSE, FASTING 104 MG/DL (70-100); POTASSIUM SERUM 4.2 MEQ/L (3.5-5.1); SODIUM LEVEL 141 MEQ/L (136-145); THYROID STIMULATING HORMONE < 0.005 uIU/ML (0.358-3.740)
== END ==
LOC: M SFHCCLAY 10:42
PROVIDERS: ATTEND Nurse Practitioner Family
DX: E04.9 Nontoxic goiter, unspecified (principal); I48.11 Longstanding persistent atrial fibrillation
CPT/HCPCS: 80048; 80162; 84439; 84443; G0463

== ENCOUNTER → 2019-08-25 | Outpatient (REF) | payer MEDICARE, OTHER ==
[~2019-08-25] MED LIST changes: -ASPI81CH33 PO
[2019-08-25 12:42] LABS: DIGOXIN LEVEL 2.3 NG/ML (0.5-2.0); THYROID STIMULATING HORMONE < 0.005 uIU/ML (0.358-3.740)
== END ==
LOC: M SFHCCLAY 08:44
PROVIDERS: ATTEND Nurse Practitioner Family
DX: E04.9 Nontoxic goiter, unspecified (principal); I48.11 Longstanding persistent atrial fibrillation; I10 Essential (primary) hypertension

== ENCOUNTER 2019-08-31 02:01 | Inpatient (IN) | payer MEDICARE, OTHER ==
[~2019-08-31] VITALS: Ht 180.3 cm; Wt 87.5 kg
[~2019-08-31 02:01] MED LIST changes: -CEFU50TA PO; -DOXY-350 PO; -FISH1000 PO; -GLUC1TAB58 PO; -METH10TA PO; -METO100T5 PO; -PRES10CA2 PO; -XARE15TA PO
[2019-08-31] MEDS ORDERED: PRES10CA2 PO (02:09)
[2019-08-31] MEDS ORDERED: METH10TA PO (02:09)
[2019-08-31] MEDS ORDERED: GLUC1TAB58 PO (02:09)
[2019-08-31] MEDS ORDERED: FISH1000 PO (02:09)
[2019-08-31] MEDS ORDERED: ACETAMINOPHEN TAB 650MG DOSE (2X325MG) PO ONE (02:30)
[2019-08-31 03:17] LABS: BASO % 0.1 % (0.0-1.0); EOS % 0.1 % (0.0-3.0); HEMATOCRIT 36.6 % (42.0-52.0); HEMOGLOBIN 11.9 g/dl (13.5-17.5); LYMPH # 0.2 10^3/uL (1.5-5.0); MEAN CORPUSCULAR HEMOGLOBIN 29.5 pg (27.0-33.0); MEAN CORPUSCULAR HGB CONC 32.5 g/dl (32.0-36.5); MEAN CORPUSCULAR VOLUME 90.6 fl (80.0-96.0); MONO # 0.2 10^3/uL (0.0-0.8); MONO % 2.2 % (0.0-5.0); NEUTROPHILS % 95.2 % (36.0-66.0); PLATELET COUNT, AUTOMATED 144 10^3/uL (150-450); RED BLOOD COUNT 4.04 10^6/uL (4.30-6.10); WHITE BLOOD COUNT 10.5 10^3/uL (4.0-10.0)
[2019-08-31] MEDS ORDERED: IBUPROFEN 800 MG TAB As Ordered ONE (03:19)
[2019-08-31] MEDS ORDERED: IBUPROFEN 800 MG TAB PO ONE (03:30)
[2019-08-31] MEDS ORDERED: NS 1,000 ML IV ONE (03:30)
[2019-08-31 04:06] LABS: ALBUMIN 3.2 GM/DL (3.2-5.2); BILIRUBIN,DIRECT 0.3 MG/DL (0.0-0.2); BILIRUBIN,TOTAL 0.8 MG/DL (0.2-1.0); TOTAL PROTEIN 6.3 GM/DL (6.4-8.2)
[2019-08-31] MEDS ORDERED: DOXYCYCLINE HYCLATE 100 MG in D5W MINI-BAG PLUS 100 ML IV ONE (06:30)
[2019-08-31] MEDS ORDERED: cefTRIAXone SOD 1 GM in D5W MINI-BAG PLUS 50 ML IV ONE (06:30)
[2019-08-31] MEDS ORDERED: METO100T5 PO (06:52)
[2019-08-31] MEDS ORDERED: DIGO0.253 PO (06:52)
--- NOTE | 2019-08-31 08:22 | REP ---
Clinical: Fever. Comparison: 08/06/2019. Technique: PA and lateral. Findings: Mediastinum and cardiac silhouette are stable with cardiomegaly again noted. Pacemaker in stable position. Lung gunn demonstrate chronic interstitial changes. Superimposed bibasilar atelectasis/early infiltrates cannot be excluded. No definite effusion. No pneumothorax. Skeletal structures intact. Impression: Diffuse chronic changes. Subtle superimposed basilar atelectasis/infiltrate cannot be excluded. Electronically Signed by Jose Eduardo Chawla MD 08/31/2019 08:14 A
[2019-08-31] MEDS ORDERED: ACETAMINOPHEN TAB 650MG DOSE (2X325MG) PO PRN (08:45)
--- NOTE | 2019-08-31 09:23 | HPEPDOC ---
[facility] Medical History & Physical Date of Admission Aug 31, 2019 Date of Service: Aug 31, 2019 Attending Physician: ERIC ELMORE MD History and Physical CHIEF COMPLAINT: Chills and shakes Fever and rigors HISTORY OF PRESENT ILLNESS: 74 year old M with PMH of Afib s/p ablation on anticoagulation, Systolic CHF with EF of 25% s/p AICD improved EF of 50%, CKD 3, hypertension, hyperthyroidism 2/2 nodular goiter recently started on methimazole, who was recently at his baseline and played golf yesterday morning, but after dinner developed shaking chills and a fever and was brought by his to the ED. In the ED he was found to be in Afib with RVR to 122 that improved to 103 with hydration, fever to 102.7 and otherwise normotensive and breathing comfortably on room air. He was given 1L NS, tylenol and ibuprofen. Studies were notable for WBC 10.5, Hgb 11.9, platelets 144, na 139, K 3.5, bicarb 22, Cr 1.4, LFTs and lipase wnl, EKG with Afib with no ischemic changes, dixogin level of 1, lactate wnl, CXR showed superimposed bibasilar atelectasis/early infiltrates. He was given ce ftriaxone/doxy for CAP and is now being admitted to medicine for PNA. Past Medical History H/o Systolic CHF with EF of 25% in s/p AICD improved EF to 50% A fib s/p ablation x 2 in Thoracic aortic aneurysm. 4.9 cm History of hypothyroid, more recently diagnosed with hyperthyroidism on mn thimazole hypertension CKD back pain Surgical History left shoulder chronic dislocation fixed. back surgery Thyroid nodule FNA/biopsy Significant Family History: -brother had esophageal cancer -brother with heart disease Social History Former smoker daily 1 drink of alcoholic beverage No illicit drugs No recent travel. Spends deras in [place], has an upcoming tournament on Review of Systems Constitutional: Endorses 1 day of Chills and Fever, no night sweats and weight loss Eyes: Denies: Pain, Vision change ENT: Denies: Head Aches, Ear Pain, Dysphagia Skin: Denies: Rash, Lesions, Breakdown Pulmonary: Denies: Dyspnea, Cough Cardiovascular: Reports: Palpitations Gastrointestinal: Denies: Nausea, Vomiting, Diarrhea. Had an episode of abdominal discomfort postprandial last night that has now resolved Genitourinary: Denies: Dysuria, Frequency, Incontinence, Retention Hematologic: Denies: Bruising, Bleeding Excessively Musculoskeletal: Reports: Back Pain Neurological: Denies: Weakness, Numbness, Change in speech, Confusion Psych: Denies: Depression, Memory Issues Physical Examination General: Alert, Cooperative, No Acute Distress, conversational, speaking in full sentences Eye: PERRLA, Conjunctiva & lids normal, EOMI, anicteric ENT: Atraumatic, Mucous membr. moist/pink, Pharynx Normal Neck: Supple, no JVD, no palpable thyromegaly Chest: Bibasilar crackles L>R, otherwise clear without wheezing or rhonchi and good air movement Heart: mild tachycardia with irregularly irregular rhythm and rate, no murmurs, rubs or gallops Telemetry: Atrial fibrillation Abdomen: Normal bowel sounds, NTND, no hepatosplenomegaly, negative Montelongo's Extremity: bilateral trace ankle edema, otherwise WWP Skin: Nl turgor and temperature, no breakdown or lesions Neuro: Normal Speech, Cranial Nerves 3-12 NL, 5/5 strength and normal tone in all 4 extremities Labs and imaging: summarized above. See below for details Assessment 74 year old M with Afib s/p ablation on dabigatran, systolic CHF with EF of 25% s/p AICD improved EF of 50%, CKD 3, hypertension, recently admitted with symptomatic hyperthyroidism from nodular goiter with AF w/ RVR now on methimazole who returns with fever and chills and found to have CAP. CAP: bibasilar crackles L>R with fever, chills, with bibasilar infiltrates -continue ceftriaxone/doxy for CAP -Sputum cultures -f/u blood culture -respiratory panel was negative, including covid-19 -procalcitonin -urine legionella and strep antigens -incentive spirometry A fib with RVR -digoxin level was therapeutic, continue home digoxin dosing -continue home metop -continue home dabigatran -telemetry History of systolic CHF, with EF improved to 50% -no gross fluid overload at this time -will continue to monitor -continue home bumetanide, metop Hypertension -continue losartan and metoprolol DVT ppx: on dabigatran Diet: 2g sodium Dispo: medsurg with tele Vital Signs Vital Signs Date Time Temp Pulse Resp B/P (MAP) Pulse Ox O2 Delivery O2 Flow Rate FiO2 08/31/19 07:15 149/84 (105) 08/31/19 07:01 103 20 96 Room Air 08/31/19 05:15 98.2 Laboratory Data Labs 24H Laboratory Tests 2 08/31/19 03:03: POC Glucose (Misc Panel) 112H, POC Sodium (Misc Panel) 139, POC Potassium (Misc Panel) 3.5, POC Chloride (Misc Panel) 102, POC Total CO2 (Misc Panel) 22.0L, POC Blood Urea Nitrogen (Misc Panel 24, POC Ionized Calcium (Misc Panel) 4.6, POC Creatinine (Misc Panel) 1.4H, POC Hematocrit (Misc Panel) 37.0L 08/31/19 03:07: POC Lactate (Misc Panel) 0.99 08/31/19 03:10: Immature Granulocyte % (Auto) 0.4, Neutrophils (%) (Auto) 95.2H, Lymphocytes (%) (Auto) 2.0L, Monocytes (%) (Auto) 2.2, Eosinophils (%) (Auto) 0.1, Basophils (%) (Auto) 0.1, Neutrophils # (Auto) 10.0H, Lymphocytes # (Auto) 0.2L, Monocytes # (Auto) 0.2, Eosinophils # (Auto) 0.0, Basophils # (Auto) 0.0, Nucleated Red Blood Cells % (auto) 0.0, Total Bilirubin 0.8, Direct Bilirubin 0.3H, Aspartate Amino Transf (AST/SGOT) 57H, Alanine Aminotransferase (ALT/SGPT) 68, Alkaline Phosphatase 120H, Total Protein 6.3L, Albumin 3.2, Albumin/Globulin Ratio 1.0, Lipase 115, Digoxin Level 1.0 08/31/19 05:17: Urine Color YELLOW, Urine Appearance HAZY, Urine pH 5.0, Urine Specific [place] 1.014, Urine Protein NEGATIVE, Urine Glucose (UA) NEGATIVE, Urine Ketones NEGATIVE, Urine Blood 2+H, Urine Nitrite NEGATIVE, Urine Bilirubin NEGATIVE, Urine Urobilinogen 0.2, Urine Leukocyte Esterase TRACEH, Urine WBC (Auto) 7H, Urine RBC (Auto) 28H, Urine Hyaline Casts (Auto) 0, Urine Bacteria (Auto) NEGATIVE, Urine Squamous Epithelial Cells 0, Urine Sperm (Auto) CBC/BMP Laboratory Tests 08/31/19 03:10 Microbiology Microbiology 08/31/19 Urine Culture, Received Pending 08/31/19 Respiratory Virus Panel (PCR) ([facility]) - Final, Complete 08/31/19 Blood Culture, Received Pending Home Medications Scheduled Amlodipine Besylate (Norvasc) 5 Mg Tablet, 5 MG PO QHS Atorvastatin Calcium (Atorvastatin Calcium) 20 Mg Tablet, 20 MG PO QHS Bumetanide (Bumetanide) 1 Mg Tablet, 1 MG PO DAILY Dabigatran Etexilate Mesylate (Pradaxa) 150 Mg Capsule, 150 MG PO BID Digoxin (Digoxin) 250 Mcg Tablet, 250 MCG PO Q2D Losartan Potassium (Losartan Potassium) 50 Mg Tablet, 100 MG PO DAILY Methimazole (Methimazole) 10 Mg Tablet, 10 MG PO DAILY Metoprolol Tartrate (Metoprolol Tartrate) 100 Mg Tablet, 100 MG PO BID Multivitamins (Thera M Plus Tablet) 1 Each Tablet, 1 TAB PO DAILY [place]-3 Fatty Acids/Fish Oil (Fish Oil 1,000 mg Capsule) 1 Each Capsule, 1 CAP PO DAILY Miscellaneous Medications Glucosamine/D3/Boswellia Peg (Osteo Bi-Flex Tablet) 1 Each Tablet, 1 EACH PO Vit C/E/Zn/Coppr/Lutein/Zeaxan (Preservision Areds 2 Softgel) 1 Each Capsule, 1 EACH PO Allergies Coded Allergies: amoxicillin (Verified Allergy, Unknown, 08/31/19) clavulanic acid (Verified Allergy, Unknown, 08/31/19) A-FIB/CHADSVASC A-FIB History Current/History of A-Fib/PAF?: Yes Current PO Anticoag Therapy: Yes ERIC ELMORE MD Aug 31, 2019 09:23
[2019-08-31 10:40] VITALS: BP 136/78
[2019-08-31] MEDS: METOPROLOL TARTRATE 100 MG TAB PO SCH ×2 (10:56→20:55)
[2019-08-31] MEDS: MULTIVITAMINS/MINERALS THERAP 1 TAB PO SCH (10:56)
[2019-08-31] MEDS: LOSARTAN 50MG TABLET PO SCH (10:57)
[2019-08-31] MEDS: DIGOXIN 0.25 MG TAB PO SCH (10:58)
[2019-08-31] MEDS: DABIGATRAN ETEXILATE 75 MG CAP (PRADAXA) PO SCH ×2 (10:58→20:53)
[2019-08-31] MEDS: BUMETANIDE 1 MG TAB PO SCH (11:14)
[2019-08-31] MEDS: OMEGA-3 1000MG CAPSULE PO SCH (11:14)
[2019-08-31 12:28] LABS: FREE T4 2.21 NG/DL (0.76-1.46); THYROID STIMULATING HORMONE < 0.005 uIU/ML (0.358-3.740)
[2019-08-31 16:16] VITALS: BP 118/74
[2019-08-31] MEDS: DOXYCYCLINE HYCLATE 100 MG in D5W MINI-BAG PLUS 100 ML IV SCH (16:42)
[2019-08-31 20:00] VITALS: BP 128/72
[2019-08-31] MEDS: amLODIPine 5 MG TAB PO SCH (20:54)
[2019-08-31] MEDS: ATORVASTATIN 20 MG TAB PO SCH (20:54)
[2019-09-01 04:00] VITALS: BP 140/86
[2019-09-01] MEDS: DOXYCYCLINE HYCLATE 100 MG in D5W MINI-BAG PLUS 100 ML IV SCH ×2 (04:51→16:33)
[2019-09-01 05:51] LABS: HEMATOCRIT 34.7 % (42.0-52.0); HEMOGLOBIN 11.2 g/dl (13.5-17.5); MEAN CORPUSCULAR HEMOGLOBIN 29.9 pg (27.0-33.0); MEAN CORPUSCULAR HGB CONC 32.3 g/dl (32.0-36.5); MEAN CORPUSCULAR VOLUME 92.5 fl (80.0-96.0); PLATELET COUNT, AUTOMATED 120 10^3/uL (150-450); RED BLOOD COUNT 3.75 10^6/uL (4.30-6.10); WHITE BLOOD COUNT 9.8 10^3/uL (4.0-10.0)
[2019-09-01 06:19] LABS: BLOOD UREA NITROGEN 23 MG/DL (7-18); CALCIUM LEVEL 8.2 MG/DL (8.8-10.2); CARBON DIOXIDE LEVEL 26 MEQ/L (21-32); CHLORIDE LEVEL 108 MEQ/L (98-107); CREATININE FOR GFR 1.18 MG/DL (0.70-1.30); GLOMERULAR FILTRATION RATE > 60.0 (>42); GLUCOSE, FASTING 105 MG/DL (70-100); POTASSIUM SERUM 3.7 MEQ/L (3.5-5.1); SODIUM LEVEL 141 MEQ/L (136-145)
[2019-09-01 08:00] VITALS: BP 144/76
[2019-09-01] MEDS: LOSARTAN 50MG TABLET PO SCH (08:14)
[2019-09-01] MEDS: OMEGA-3 1000MG CAPSULE PO SCH (08:14)
[2019-09-01] MEDS: cefTRIAXone SOD 1 GM in D5W MINI-BAG PLUS 50 ML IV SCH (08:14)
[2019-09-01] MEDS: DABIGATRAN ETEXILATE 75 MG CAP (PRADAXA) PO SCH ×2 (08:15→20:23)
[2019-09-01] MEDS: BUMETANIDE 1 MG TAB PO SCH (08:15)
[2019-09-01] MEDS: MULTIVITAMINS/MINERALS THERAP 1 TAB PO SCH (08:16)
[2019-09-01] MEDS: METOPROLOL TARTRATE 100 MG TAB PO SCH ×2 (08:16→20:24)
[2019-09-01 08:23] LABS: ALBUMIN 2.8 GM/DL (3.2-5.2); ALT/SGPT 129 U/L (12-78); BILIRUBIN,TOTAL 0.9 MG/DL (0.2-1.0); TOTAL PROTEIN 5.8 GM/DL (6.4-8.2)
[2019-09-01 12:00] VITALS: BP 137/79
[2019-09-01 20:00] VITALS: BP 126/74
[2019-09-01] MEDS: ATORVASTATIN 20 MG TAB PO SCH (20:23)
[2019-09-01] MEDS: amLODIPine 5 MG TAB PO SCH (20:23)
--- NOTE | 2019-09-01 21:09 | IPNPDOC ---
Date Seen The patient was seen on 09/01/19. Progress Note SUBJECTIVE: WBC wnl, on RA. 03/05 bottles + for Gram neg rods, there was not a second set drawn on admission. Repeated BCx x 2 sets today. Denies chest pain, shortness of breath, increased cough, fevers or chills. OBJECTIVE: VITAL SIGNS: Please see below PHYSICAL EXAMINATION: General: AAOx 3, in NAD Eye: PERRLA, Conjunctiva & lids normal, EOMI, anicteric ENT: Atraumatic, Mucous membr. moist/pink, Pharynx Normal Neck: Supple, no JVD, no palpable thyromegaly Chest: Bibasilar crackles L>R, otherwise clear without wheezing or rhonchi and good air movement Heart: mild tachycardia with irregularly irregular rhythm and rate, no murmurs, rubs or gallops Telemetry: Atrial fibrillation Abdomen: Normal bowel sounds, NTND, no hepatosplenomegaly, negative Montelongo's Extremity: bilateral trace ankle edema, otherwise WWP Skin: Nl turgor and temperature, no breakdown or lesions Neuro: Normal Speech, Cranial Nerves 3-12 NL, 5/5 strength and normal tone in all 4 extremities LABORATORY: Please see below MICROBIOLOGY: BCx x 1 set Gram neg rods F/u repeat BCx x 2 sets. F/u sputum culture ASSESSMENT: 74 year old M with Afib s/p ablation on dabigatran, systolic CHF with EF of 25% s/p AICD improved EF of 50%, CKD 3, hypertension, recently admitted with symptomatic hyperthyroidism from nodular goiter with AF w/ RVR now on methimazole who returns with fever and chills and found to have CAP. PLAN: 1. CAP: bibasilar crackles L>R with fever, chills, with bibasilar infiltrates -Blood culture + for gram neg rods /2, f/u repeat cultures -Sputum culture ordered, micro above -Incentive spirometry -Day 2 ceftriaxone/doxy 2. A fib with RVR -Rate controlled, on tele -digoxin level was therapeutic, continue home digoxin dosing -continue home metop, dabigatran 3. History of systolic CHF, with EF improved to 50% -no gross fluid overload at this time -will continue to monitor -continue home bumetanide, metop 4. Hypertension -continue losartan and metoprolol 5. DVT ppx: on dabigatran DISPOSITION: Med surg. Plan is discharge home when medically improved. VS, I&O, 24H, [facility] Vital Signs/I&O Vital Signs Date Time Temp Pulse Resp B/P (MAP) Pulse Ox O2 Delivery O2 Flow Rate FiO2 09/01/19 20:24 122 146/74 09/01/19 20:00 98.5 20 97 Room Air I&O- Last 24 Hours up to 6 AM 09/01/19 06:00 Intake Total 1830 ml Output Total 1530 ml Balance 300 ml Laboratory Data 24H LABS Laboratory Tests 2 09/01/19 05:13: Nucleated Red Blood Cells % (auto) 0.0, Anion Gap 7L, Glomerular Filtration Rate > 60.0, Calcium Level 8.2L, Magnesium Level 2.0, Total Bilirubin 0.9, Aspartate Amino Transf (AST/SGOT) 93H, Alanine Aminotransferase (ALT/SGPT) 129H, Alkaline Phosphatase 103, Total Protein 5.8L, Albumin 2.8L, Albumin/Globulin Ratio 0.9 09/01/19 09:49: Lab Scanned Report LAB OTHER CBC/BMP Laboratory Tests 09/01/19 05:13 Microbiology Microbiology 08/31/19 Urine Culture - Final, Complete 08/31/19 Respiratory Virus Panel (PCR) ([facility]) - Final, Complete 08/31/19 Blood Culture - Preliminary, Resulted Current Medications Current Medications Medications (Trade) Dose Ordered Sig/Stephanie Route PRN Reason Start Time Stop Time Status Last Admin Dose Admin Acetaminophen (Tylenol Tab) 650 mg Q4H PRN PO PAIN OR FEVER 08/31/19 08:45 Amlodipine Besylate (Norvasc) 5 mg QHS PO 08/31/19 21:00 09/01/19 20:23 Atorvastatin Calcium (Lipitor) 20 mg QHS PO 08/31/19 21:00 09/01/19 20:23 Bumetanide (Bumex) 1 mg DAILY PO 08/31/19 09:00 09/01/19 08:15 Ceftriaxone Sodium 1 gm/ Dextrose 50 ml @ 100 mls/hr Q24H IV 09/01/19 09:00 09/01/19 08:14 Dabigatran (Pradaxa) 150 mg BID PO 08/31/19 09:00 09/01/19 20:23 Digoxin (Lanoxin) 0.25 mg Q2D PO 08/31/19 09:00 08/31/19 10:58 Doxycycline Hyclate 100 mg/ Dextrose 100 ml @ 100 mls/hr Q12H IV 08/31/19 16:00 09/01/19 16:33 Fish Oil (Al[place]-3 (1000mg)) 1 cap DAILY PO 08/31/19 09:00 09/01/19 08:14 Home Med (Med Rec Complete!) ASDIRECTED XX 08/31/19 07:00 08/31/19 06:55 DC Losartan Potassium (Cozaar) 100 mg DAILY PO 08/31/19 09:00 09/01/19 08:14 Methimazole (Tapazole) 10 mg DAILY PO 08/31/19 09:00 09/01/19 08:15 Metoprolol Tartrate (Lopressor) 100 mg BID PO 08/31/19 09:00 09/01/19 20:24 Multivitamins (Theragram-M) 1 tab DAILY PO 08/31/19 09:00 09/01/19 08:16 Allergies Coded Allergies: amoxicillin (Verified Allergy, Unknown, 08/31/19) clavulanic acid (Verified Allergy, Unknown, 08/31/19) Paige Dias MD Sep 01, 2019 21:09
[2019-09-02 04:00] VITALS: BP 146/96
[2019-09-02] MEDS: DOXYCYCLINE HYCLATE 100 MG in D5W MINI-BAG PLUS 100 ML IV SCH ×2 (04:22→16:03)
[2019-09-02 04:30] LABS: HEMATOCRIT 32.7 % (42.0-52.0); HEMOGLOBIN 10.6 g/dl (13.5-17.5); MEAN CORPUSCULAR HEMOGLOBIN 29.9 pg (27.0-33.0); MEAN CORPUSCULAR HGB CONC 32.4 g/dl (32.0-36.5); MEAN CORPUSCULAR VOLUME 92.1 fl (80.0-96.0); PLATELET COUNT, AUTOMATED 121 10^3/uL (150-450); RED BLOOD COUNT 3.55 10^6/uL (4.30-6.10); WHITE BLOOD COUNT 7.9 10^3/uL (4.0-10.0)
[2019-09-02 04:42] LABS: BLOOD UREA NITROGEN 20 MG/DL (7-18); CARBON DIOXIDE LEVEL 29 MEQ/L (21-32); CHLORIDE LEVEL 110 MEQ/L (98-107); CREATININE FOR GFR 1.06 MG/DL (0.70-1.30); GLOMERULAR FILTRATION RATE > 60.0 (>42); GLUCOSE, FASTING 96 MG/DL (70-100); POTASSIUM SERUM 3.6 MEQ/L (3.5-5.1); SODIUM LEVEL 145 MEQ/L (136-145)
[2019-09-02] MEDS: MULTIVITAMINS/MINERALS THERAP 1 TAB PO SCH (08:02)
[2019-09-02] MEDS: LOSARTAN 50MG TABLET PO SCH (08:03)
[2019-09-02] MEDS: BUMETANIDE 1 MG TAB PO SCH (08:03)
[2019-09-02] MEDS: METOPROLOL TARTRATE 100 MG TAB PO SCH ×2 (08:03→21:09)
[2019-09-02] MEDS: DABIGATRAN ETEXILATE 75 MG CAP (PRADAXA) PO SCH ×2 (08:04→21:09)
[2019-09-02] MEDS: DIGOXIN 0.25 MG TAB PO SCH (08:04)
[2019-09-02] MEDS: OMEGA-3 1000MG CAPSULE PO SCH (08:04)
[2019-09-02] MEDS: cefTRIAXone SOD 1 GM in D5W MINI-BAG PLUS 50 ML IV SCH (09:00)
[2019-09-02 12:00] VITALS: BP 150/96
--- NOTE | 2019-09-02 14:32 | REP ---
LEFT UPPER EXTREMITY DUPLEX VENOUS ULTRASOUND: HISTORY: Status post IV infiltration. FINDINGS: Two-dimensional and Doppler interrogation of the upper extremity veins in the left upper extremity demonstrate partial thrombosis of the cephalic vein from the antecubital fossa to mid humeral level. The basilic and brachial veins are anechoic and compressible and free of thrombus. Subclavian and internal jugular vein segments are clear on the left. IMPRESSION: Partial venous thrombosis in the cephalic vein in the left arm. The other venous structures in the left upper extremity are clear. Electronically Signed by Don Rodriguez MD 09/02/2019 03:11 P
--- NOTE | 2019-09-02 16:59 | IPNPDOC ---
Date Seen The patient was seen on 09/02/19. Progress Note SUBJECTIVE: Repeat blood cultures pending. upon further discussion with patient, he admits to having bacteremia in the past. Pseudomonas + in prior blood culture, there was not a second set drawn on admission. Repeated BCx x 2 sets pending. Denies chest pain, shortness of breath, increased cough, fevers or chills. OBJECTIVE: VITAL SIGNS: Please see below PHYSICAL EXAMINATION: General: AAOx 3, in NAD Eye: PERRLA, Conjunctiva & lids normal, EOMI, anicteric ENT: Atraumatic, Mucous membr. moist/pink, Pharynx Normal Neck: Supple, no JVD, no palpable thyromegaly Chest: Bibasilar crackles L>R, otherwise clear without wheezing or rhonchi and good air movement Heart: mild tachycardia with irregularly irregular rhythm and rate, no murmurs, rubs or gallops Telemetry: Atrial fibrillation Abdomen: Normal bowel sounds, NTND, no hepatosplenomegaly, negative Montelongo's Extremity: bilateral trace ankle edema, otherwise WWP Skin: Nl turgor and temperature, no breakdown or lesions Neuro: Normal Speech, Cranial Nerves 3-12 NL, 5/5 strength and normal tone in all 4 extremities LABORATORY: Please see below MICROBIOLOGY: BCx x 1 set- Pseudomonas F/u repeat BCx x 2 sets. F/u sputum culture ASSESSMENT: 74 year old M with Afib s/p ablation on dabigatran, systolic CHF with EF of 25% s/p AICD improved EF of 50%, CKD 3, hypertension, recently admitted with symptomatic hyperthyroidism from nodular goiter with AF w/ RVR now on methimazole who returns with fever and chills and found to have CAP, pseudomonas bacteremia. PLAN: 1. Pseudomonas bacteremia -WBC wnl, afebrile -1 set blood cultures drawn on admission, ? contaminant -Repeat blood cultures pending, likely return this evening or in AM -C/w current abx treatment 2. Healthcare associated PNA. Recent hospitalization from 08/06/19-08/10/19 -Was admitted for CAP originally -Currently afebrile, WBC wnl -CXR: bibasilar infiltrates -Blood culture + pseudomonas and patient would be at risk for this due to recent hospitalization -Sputum culture unable to be provided due to patient not coughing -Incentive spirometry -Will not broaden abx to cover pseudomonas, as 1. we are suspicious of this blood culture being contaminant and 2. patient has not worsened on current abx therapy. -Currently Day 3 ceftriaxone/doxycycline 2. A fib with RVR -Rate controlled, on tele -digoxin level was therapeutic -continue home metop, dabigatran, digoxin 3. History of systolic CHF, with EF improved to 50% -no gross fluid overload at this time -continue home bumetanide, metop 4. Hypertension -continue losartan and metoprolol 5. DVT ppx: on dabigatran DISPOSITION: Plan is discharge home when medically improved. VS, I&O, 24H, Fishbone Vital Signs/I&O Vital Signs Date Time Temp Pulse Resp B/P (MAP) Pulse Ox O2 Delivery O2 Flow Rate FiO2 09/02/19 12:00 97.5 91 18 150/96 (114) 99 Room Air I&O- Last 24 Hours up to 6 AM 09/02/19 06:00 Intake Total 780 ml Output Total 2925 ml Balance -2145 ml Laboratory Data 24H LABS Laboratory Tests 2 09/02/19 03:38: Nucleated Red Blood Cells % (auto) 0.0, Anion Gap 6L, Glomerular Filtration Rate > 60.0, Calcium Level 8.0L CBC/BMP Laboratory Tests 09/02/19 03:38 Microbiology Microbiology 09/01/19 Blood Culture, Received Pending 09/01/19 Blood Culture, Received Pending 08/31/19 Urine Culture - Final, Complete 08/31/19 Respiratory Virus Panel (PCR) ([facility]) - Final, Complete 08/31/19 Blood Culture - Preliminary, Resulted Pseudomonas Aeruginosa Current Medications Current Medications Medications (Trade) Dose Ordered Sig/Stephanie Route PRN Reason Start Time Stop Time Status Last Admin Dose Admin Acetaminophen (Tylenol Tab) 650 mg Q4H PRN PO PAIN OR FEVER 08/31/19 08:45 Amlodipine Besylate (Norvasc) 5 mg QHS PO 08/31/19 21:00 09/01/19 20:23 Atorvastatin Calcium (Lipitor) 20 mg QHS PO 08/31/19 21:00 09/01/19 20:23 Bumetanide (Bumex) 1 mg DAILY PO 08/31/19 09:00 09/02/19 08:03 Ceftriaxone Sodium 1 gm/ Dextrose 50 ml @ 100 mls/hr Q24H IV 09/01/19 09:00 09/01/19 08:14 Dabigatran (Pradaxa) 150 mg BID PO 08/31/19 09:00 09/02/19 08:04 Digoxin (Lanoxin) 0.25 mg Q2D PO 08/31/19 09:00 09/02/19 08:04 Doxycycline Hyclate 100 mg/ Dextrose 100 ml @ 100 mls/hr Q12H IV 08/31/19 16:00 09/02/19 16:03 Fish Oil ([place]-3 (1000mg)) 1 cap DAILY PO 08/31/19 09:00 09/02/19 08:04 Home Med (Med Rec Complete!) ASDIRECTED XX 08/31/19 07:00 08/31/19 06:55 DC Losartan Potassium (Cozaar) 100 mg DAILY PO 08/31/19 09:00 09/02/19 08:03 Methimazole (Tapazole) 10 mg DAILY PO 08/31/19 09:00 09/02/19 08:03 Metoprolol Tartrate (Lopressor) 100 mg BID PO 08/31/19 09:00 09/02/19 08:03 Multivitamins (Theragram-M) 1 tab DAILY PO 08/31/19 09:00 09/02/19 08:02 Allergies Coded Allergies: amoxicillin (Verified Allergy, Unknown, 08/31/19) clavulanic acid (Verified Allergy, Unknown, 08/31/19) Paige Dias MD Sep 02, 2019 16:59
[2019-09-02 20:00] VITALS: BP 132/80
[2019-09-02] MEDS: ATORVASTATIN 20 MG TAB PO SCH (21:09)
[2019-09-02] MEDS: amLODIPine 5 MG TAB PO SCH (21:10)
[2019-09-03 04:00] VITALS: BP 138/76
[2019-09-03] MEDS: DOXYCYCLINE HYCLATE 100 MG in D5W MINI-BAG PLUS 100 ML IV SCH (04:55)
[2019-09-03 05:09] LABS: HEMATOCRIT 34.9 % (42.0-52.0); HEMOGLOBIN 11.2 g/dl (13.5-17.5); MEAN CORPUSCULAR HEMOGLOBIN 29.3 pg (27.0-33.0); MEAN CORPUSCULAR HGB CONC 32.1 g/dl (32.0-36.5); MEAN CORPUSCULAR VOLUME 91.4 fl (80.0-96.0); PLATELET COUNT, AUTOMATED 140 10^3/uL (150-450); RED BLOOD COUNT 3.82 10^6/uL (4.30-6.10); WHITE BLOOD COUNT 8.1 10^3/uL (4.0-10.0)
[2019-09-03 05:38] LABS: BLOOD UREA NITROGEN 16 MG/DL (7-18); CALCIUM LEVEL 8.7 MG/DL (8.8-10.2); CARBON DIOXIDE LEVEL 28 MEQ/L (21-32); CHLORIDE LEVEL 109 MEQ/L (98-107); CREATININE FOR GFR 0.99 MG/DL (0.70-1.30); GLOMERULAR FILTRATION RATE > 60.0 (>42); GLUCOSE, FASTING 99 MG/DL (70-100); POTASSIUM SERUM 3.7 MEQ/L (3.5-5.1); SODIUM LEVEL 142 MEQ/L (136-145)
[2019-09-03 07:14] VITALS: BP 130/80
[2019-09-03] MEDS ORDERED: CEFU50TA PO (07:38)
[2019-09-03] MEDS ORDERED: DOXY-350 PO (07:38)
[2019-09-03 08:32] VITALS: BP 130/80
[2019-09-03] MEDS: OMEGA-3 1000MG CAPSULE PO SCH (08:32)
[2019-09-03] MEDS: DABIGATRAN ETEXILATE 75 MG CAP (PRADAXA) PO SCH (08:32)
[2019-09-03] MEDS: BUMETANIDE 1 MG TAB PO SCH (08:32)
[2019-09-03] MEDS: METOPROLOL TARTRATE 100 MG TAB PO SCH (08:32)
[2019-09-03] MEDS: LOSARTAN 50MG TABLET PO SCH (08:32)
[2019-09-03] MEDS: cefTRIAXone SOD 1 GM in D5W MINI-BAG PLUS 50 ML IV SCH (08:33)
[2019-09-03] MEDS: MULTIVITAMINS/MINERALS THERAP 1 TAB PO SCH (08:33)
[2019-09-03] MEDS ORDERED: XARE15TA PO (09:52)
--- NOTE | 2019-09-03 17:56 | DS.PDOC ---
Discharge Summary General Date of Admission Sep 01, 2019 at 09:49 Date of Discharge 09/03/19 Primary Care Physician: Ania TrujilloP Attending Physician: Paige Dias MD Discharge Summary HISTORY OF PRESENT ILLNESS: 74 year old M with PMH of Afib s/p ablation on anticoagulation, Systolic CHF with EF of 25% s/p AICD improved EF of 50%, CKD 3, hypertension, hyperthyroidism 2/2 nodular goiter recently started on methimazole, who was recently at his bas [place] and played golf yesterday morning, but after dinner developed shaking chills and a fever and was brought by his to the ED. In the ED he was found to be in Afib with RVR to 122 that improved to 103 with hydration, fever to 102.7 and otherwise normotensive and breathing comfortably on room air. He was given 1L NS, tylenol and ibuprofen. Studies were notable for WBC 10.5, Hgb 11.9, platelets 144, na 139, K 3.5, bicarb 22, Cr 1.4, LFTs and lipase wnl, EKG with Afib with no ischemic changes, dixogin level of 1, lactate wnl, CXR showed superimposed bibasilar atelectasis/early infiltrates. He was given ceftriaxone/doxy for CAP and is now being admitted to medicine for PNA. HOSPITAL COURSE: Patient was continued on ceftriaxone/doxycycline for treatment. One culture was collected on admission which later grew out Pseudomonas bacteria. Repeat cultures were drawn which later came back at 24 hours no growth. The patient's complained of left upper extremity pain and swelling. Left upper extremity Doppler showed partial occlusion by a thrombosis in the cephalic vein. The patient has been on for pradaxa for many years for anticoagulation, upper coagulable workup was sent off. The patient states to be compliant with his medications at home and has had multiple hospitalizations and IVs in the left upper extremity over the past several months. Due to this appearing to be treatment failure by Pradaxa, he was switched to Xarelto 15 mg by mouth twice a day 21 days. After 21 days the patient's primary care provider should put in a prescription for Xarelto 20 mg by mouth daily to be continued. He'll be sent home with additional oral medication of Ceftin and doxycycline to complete treatment for pneumonia. At the time of discharge the patient denied chest pain, shortness of breath, nausea, vomiting, fevers or chills. REVIEW OF SYSTEMS: Negative except for what is mentioned above Past Medical History H/o Systolic CHF with EF of 25% in s/p AICD improved EF to 50% A fib s/p ablation x 2 in Thoracic aortic aneurysm. 4.9 cm History of hypothyroid, more recently diagnosed with hyperthyroidism on methimazole hypertension CKD back pain Surgical History left shoulder chronic dislocation fixed. back surgery Thyroid nodule FNA/biopsy Significant Family History: -brother had esophageal cancer -brother with heart disease Social History Former smoker daily 1 drink of alcoholic beverage No illicit drugs No recent travel. Spends deras in [place], has an upcoming tournament on DISCHARGE MEDICATIONS: Please see below. PHYSICAL EXAMINATION: General: AAOx 3, in NAD Eye: PERRLA, Conjunctiva & lids normal, EOMI, anicteric ENT: Atraumatic, Mucous membr. moist/pink, Pharynx Normal Neck: Supple, no JVD, no palpable thyromegaly Chest: mild and improved crackles L>R, otherwise clear without wheezing or rhonchi and good air movement Heart: irregularly irregular rhythm and rate, no murmurs, rubs or gallops Telemetry: Atrial fibrillation Abdomen: Normal bowel sounds, NTND, no hepatosplenomegaly, negative Montelongo's Extremity:LUE swelling, mild tenderness to palpation of antecubital area on left arm and above slightly, bilateral trace ankle edema Skin: Nl turgor and temperature, no breakdown or lesions Neuro: Normal Speech, Cranial Nerves 3-12 NL, 5/5 strength and normal tone in all 4 extremities LABORATORY: Please see below MICROBIOLOGY: BCx x 1 set- Pseudomonas F/u repeat BCx x 2 sets- NG at 24 hours sputum culture- unable to be produced. ASSESSMENT: 74 year old M with Afib s/p ablation on dabigatran, systolic CHF with EF of 25% s/p AICD improved EF of 50%, CKD 3, hypertension, recently admitted with sympt omatic hyperthyroidism from nodular goiter with AF w/ RVR now on methimazole who returns with fever and chills and found to have CAP PLAN: 1. Healthcare associated PNA. Recent hospitalization from 08/06/19-08/10/19 -Was admitted for CAP originally -Currently afebrile, WBC wnl -CXR: bibasilar infiltrates -Blood culture + pseudomonas; however, likely contaminant with repeat blood cultures x 2 sets NG. -Sputum culture unable to be provided -Currently Day 4 ceftriaxone/doxycycline. Discharged with additional 6 days of ceftin + doxycycline (total of 10 days abx tx) 2. Positive blood culture, likely contaminant with Pseudomonas x 1 bottle in one set -WBC wnl, afebrile -Repeat blood cultures-NG at 24 hours 3. Left cephalic vein thrombosis -hx of multiple IVs in that arm this admission and last as well -On pradaxa for many years, states to be compliant and has been on this hospital stay -Concern for treatment failure and hypercoag workup done prior to discharge (Protein C &S studies, Antithrombin III, Factor V Leiden, etc) -Discharged with xarelto 15 mg PO BID x 21 days, then to switch to 20 mg PO daily after that -PCP will need to f/u on pending labs 4. Atrial fibrillation, occasionally in RVR -Likely driven at times by hyperthyroidism-goiter -Rate controlled currently -digoxin level was therapeutic -C/w BB, xarelto, digoxin 5. History of systolic CHF, with EF improved to 50% -no gross fluid overload at this time -continue home bumetanide, metop 6. Hypertension -continue losartan and metoprolol 7. Hyperthyroidism 2/2 to goiter -Believed to be responsible for intermittent RVR -TSH low, very recently started on methimazole. -Follows with Dr. Pantoja, endocrinology -Recommend close f/u with PCP and specialist DISPOSITION: Discharging home today in improved condition and with f/u with PCP. Will require close follow up with PCP, especially since we have needed to change his anticoagulation and with a hypercoag workup pending. TIME SPENT ON DISCHARGE: Greater than 30 minutes. Vital Signs/I&Os Vital Signs Date Time Temp Pulse Resp B/P (MAP) Pulse Ox O2 Delivery O2 Flow Rate FiO2 09/03/19 08:32 112 130/80 09/03/19 07:14 98.2 18 100 Room Air I&O- Last 24 Hours up to 6 AM 09/03/19 06:00 Intake Total 1440 ml Output Total 3475 ml Balance -2035 ml Laboratory Data Labs 24H Laboratory Tests 2 09/03/19 04:45: Nucleated Red Blood Cells % (auto) 0.0, Anion Gap 5L, Glomerular Filtration Rate > 60.0, Calcium Level 8.7L 09/03/19 10:25: Fibrinogen 516H CBC/BMP Laboratory Tests 09/03/19 04:45 Microbiology Microbiology 09/01/19 Blood Culture - Preliminary, Resulted No growth after 24 hours . All specim... 09/01/19 Blood Culture - Preliminary, Resulted No growth after 24 hours . All specim... 08/31/19 Urine Culture - Final, Complete 08/31/19 Respiratory Virus Panel (PCR) ([facility]) - Final, Complete 08/31/19 Blood Culture - Final, Complete Pseudomonas Aeruginosa Discharge Medications Scheduled Amlodipine Besylate (Norvasc) 5 Mg Tablet, 5 MG PO QHS, (Reported) Atorvastatin Calcium (Atorvastatin Calcium) 20 Mg Tablet, 20 MG PO QHS, (Reported) Bumetanide (Bumetanide) 1 Mg Tablet, 1 MG PO DAILY, (Reported) Cefuroxime Axetil (Cefuroxime) 500 Mg Tablet, 500 MG PO BID Digoxin (Digoxin) 250 Mcg Tablet, 250 MCG PO Q2D, (Reported) Doxycycline Monohydrate (Doxycycline) 100 Mg Capsule, 100 MG PO BID Losartan Potassium (Losartan Potassium) 50 Mg Tablet, 100 MG PO DAILY, (R eported) Methimazole (Methimazole) 10 Mg Tablet, 10 MG PO DAILY, (Reported) Metoprolol Tartrate (Metoprolol Tartrate) 100 Mg Tablet, 100 MG PO BID, (Reported) Multivitamins (Thera M Plus Tablet) 1 Each Tablet, 1 TAB PO DAILY, (Reported) [place]-3 Fatty Acids/Fish Oil (Fish Oil 1,000 mg Capsule) 1 Each Capsule, 1 CAP PO DAILY, (Reported) Rivaroxaban (Xarelto) 15 Mg Tablet, 15 MG PO BID Take xarelto 15 mg PO BID with food x 21 days, after 21 days xarelto dose will change to xarelto 20 mg PO daily with food Miscellaneous Medications Glucosamine/D3/Boswellia Peg (Osteo Bi-Flex Tablet) 1 Each Tablet, 1 EACH PO, (Reported) Vit C/E/Zn/Coppr/Lutein/Zeaxan (Preservision Areds 2 Softgel) 1 Each Capsule, 1 EACH PO, (Reported) Allergies Coded Allergies: amoxicillin (Verified Allergy, Unknown, 08/31/19) clavulanic acid (Verified Allergy, Unknown, 08/31/19) Paige Dias MD Sep 03, 2019 17:56
== END 2019-09-03 10:40 | disposition home or self-care (01) | DRG 194 ==
LOC: M ED 02:01 → M ED INP 02:02 → ENRESERV 08:57 → M PCU 10:31 → OBSVTOIN 09-01 09:49
PROVIDERS: ADMIT Internal Medicine; ATTEND Internal Medicine
DX: J18.9 Pneumonia, unspecified organism (principal); I50.22 Chronic systolic (congestive) heart failure; I82.612 Acute embolism and thrombosis of superficial veins of left upper extremity; I13.0 Hypertensive heart and chronic kidney disease with heart failure and stage 1 through stage 4 chronic kidney disease, or unspecified chronic kidney disease; I48.91 Unspecified atrial fibrillation; N18.3 Chronic kidney disease, stage 3 (moderate); E05.90 Thyrotoxicosis, unspecified without thyrotoxic crisis or storm; I71.2 Thoracic aortic aneurysm, without rupture; Z79.899 Other long term (current) drug therapy; Z88.0 Allergy status to penicillin; Z88.8 Allergy status to other drugs, medicaments and biological substances

== ENCOUNTER → 2019-09-09 | Outpatient (CLI) | payer MEDICARE, OTHER ==
[~2019-09-09] MED LIST changes: +ASPI81CH33 PO; +CEFU50TA PO; +DOXY-350 PO; +FISH1000 PO; +GLUC1TAB58 PO; +METH10TA PO; +METO100T5 PO; +PRES10CA2 PO; +XARE15TA PO
--- NOTE | 2019-09-09 16:19 | REP ---
REASON: Followup. COMPARISON: Multiple, the latest 08/31/2019. Basilar fibrotic changes status quo. Cardiomegaly status quo. Dual-chamber bipolar pacemaker device status quo. No new abnormal opacities. No change in the osseous structures. IMPRESSION: Stable chest. There is no acute cardiopulmonary disease. Electronically Signed by Santos Abad DO 09/10/2019 11:05 A
== END ==
LOC: M CLY 11:09
PROVIDERS: ATTEND Nurse Practitioner Family
DX: J15.1 Pneumonia due to Pseudomonas (principal); I51.7 Cardiomegaly; Z95.0 Presence of cardiac pacemaker

== ENCOUNTER 2019-09-15 12:34 | Emergency (ER) | payer MEDICARE, OTHER ==
[~2019-09-15] VITALS: Ht 180.3 cm; Wt 82.6 kg
[~2019-09-15 12:34] MED LIST changes: -ASPI81CH33 PO
[2019-09-15 13:08] LABS: BASO % 0.4 % (0.0-1.0); EOS # 0.2 10^3/uL (0.0-0.5); EOS % 1.8 % (0.0-3.0); HEMATOCRIT 37.9 % (42.0-52.0); HEMOGLOBIN 12.6 g/dl (13.5-17.5); LYMPH # 1.2 10^3/uL (1.5-5.0); LYMPH % 12.8 % (24.0-44.0); MEAN CORPUSCULAR HEMOGLOBIN 29.9 pg (27.0-33.0); MEAN CORPUSCULAR HGB CONC 33.2 g/dl (32.0-36.5); MONO # 1.1 10^3/uL (0.0-0.8); MONO % 11.5 % (0.0-5.0); PLATELET COUNT, AUTOMATED 243 10^3/uL (150-450); RED BLOOD COUNT 4.21 10^6/uL (4.30-6.10); WHITE BLOOD COUNT 9.6 10^3/uL (4.0-10.0)
[2019-09-15] MEDS ORDERED: ASPI81CH33 PO (13:16)
[2019-09-15 13:28] LABS: BLOOD UREA NITROGEN 19 MG/DL (7-18); CALCIUM LEVEL 9.1 MG/DL (8.8-10.2); CARBON DIOXIDE LEVEL 26 MEQ/L (21-32); CHLORIDE LEVEL 106 MEQ/L (98-107); CREATININE FOR GFR 1.21 MG/DL (0.70-1.30); GLOMERULAR FILTRATION RATE > 60.0 (>42); GLUCOSE, FASTING 106 MG/DL (70-100); POTASSIUM SERUM 3.8 MEQ/L (3.5-5.1); SODIUM LEVEL 139 MEQ/L (136-145)
[2019-09-15 14:01] LABS: DIGOXIN LEVEL 0.7 NG/ML (0.5-2.0)
[2019-09-15] MEDS ORDERED: DIGOXIN INJ 0.5 MG/2 ML AMP (J1160) IV STA (14:13)
[2019-09-15] MEDS ORDERED: METOPROLOL TARTRATE 100 MG TAB PO ONE (14:15)
[2019-09-15] MEDS: METOPROLOL 5 MG/5 ML VIAL IV SCH ×3 (14:37→14:54)
[2019-09-15 15:44] LABS: FREE THYROXINE INDEX 5.2 % (1.4-3.8); T UPTAKE 38 % (33-40); THYROID STIMULATING HORMONE < 0.005 uIU/ML (0.358-3.740); THYROXINE (T4) 13.8 UG/DL (4.5-12.0)
[2019-09-15] MEDS ORDERED: AMIODARONE HCL 150 MG in IV 1 EA IV STA (16:28)
--- NOTE | 2019-09-15 16:28 | REP ---
CHEST, PORTABLE: AP portable view of the chest is performed. COMPARISON: 09/09/2019 There is no acute infiltrate. There is mild cardiomegaly. There is mild calcification and tortuosity of the thoracic aorta. Mediastinal silhouette is unchanged. Left dual-lead pacemaker is again noted. IMPRESSION: Mild cardiomegaly with no acute pulmonary disease. Electronically Signed by Zachary Giang MD 09/16/2019 11:27 A
[2019-09-15] MEDS ORDERED: diltiaZEM 125 MG in NS 100 ML IV SCH ×2 (19:00→19:24)
[2019-09-15 20:03] VITALS: BP 143/90
--- NOTE | 2019-09-15 21:00 | ECGEPIP ---
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
--- NOTE | 2019-09-15 21:03 | ECGEPIP ---
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
--- NOTE | 2019-09-15 21:05 | ECGEPIP ---
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
[2019-09-15 21:14] VITALS: BP 130/89
== END 2019-09-15 21:20 | disposition short-term general hospital (02) ==
LOC: M ED 12:34
DX: I48.3 Typical atrial flutter (principal); I71.2 Thoracic aortic aneurysm, without rupture; E78.5 Hyperlipidemia, unspecified; N18.3 Chronic kidney disease, stage 3 (moderate); Z79.01 Long term (current) use of anticoagulants; Z87.891 Personal history of nicotine dependence; Z88.1 Allergy status to other antibiotic agents; Z95.0 Presence of cardiac pacemaker
CPT/HCPCS: 71045; 80048; 80162; 84436; 84443; 84479; 84484; 85025; 93005; 93041; 94760; 96374; 96375; 99285; J1160; U0002

== ENCOUNTER → 2020-08-10 | Outpatient (REF) | payer MEDICARE, OTHER ==
[~2020-08-10] MED LIST changes: +ASPI81CH33 PO
[2020-08-10 18:34] LABS: ALBUMIN 3.7 GM/DL (3.2-5.2); BILIRUBIN,TOTAL 1.2 MG/DL (0.2-1.0); CALCIUM LEVEL 9.1 MG/DL (8.8-10.2); CREATININE FOR GFR 1.25 MG/DL (0.70-1.30); GLOMERULAR FILTRATION RATE 59.6 (>42); POTASSIUM SERUM 4.1 MEQ/L (3.5-5.1)
[2020-08-10 20:51] LABS: HEMOGLOBIN A1c 5.6 %
== END ==
LOC: M SFHCCLAY 10:31
PROVIDERS: ATTEND Nurse Practitioner Family
DX: I48.11 Longstanding persistent atrial fibrillation (principal); I10 Essential (primary) hypertension; E03.9 Hypothyroidism, unspecified; M25.572 Pain in left ankle and joints of left foot; R73.01 Impaired fasting glucose; H61.23 Impacted cerumen, bilateral; Z12.5 Encounter for screening for malignant neoplasm of prostate
CPT/HCPCS: 69210; 80053; 83036; 84550; 85025; 85652; 86140; G0103; G0463

== ENCOUNTER → 2020-08-10 | Outpatient (REF) | payer MEDICARE, OTHER ==
[2020-08-10 18:16] LABS: ALBUMIN 3.8 GM/DL (3.2-5.2); C REACTIVE PROTEIN QUANTITATIV 0.54 MG/DL (0.00-0.30); CALCIUM LEVEL 9.2 MG/DL (8.8-10.2); CREATININE FOR GFR 1.27 MG/DL (0.70-1.30); GLOMERULAR FILTRATION RATE 58.5 (>42); TOTAL PROTEIN 7.2 GM/DL (6.4-8.2); URIC ACID 5.1 MG/DL (3.5-7.2)
[2020-08-10 18:18] LABS: BASO % 0.4 % (0.0-1.0); EOS # 0.3 10^3/uL (0.0-0.5); EOS % 2.6 % (0.0-3.0); HEMATOCRIT 45.3 % (42.0-52.0); HEMOGLOBIN 14.6 g/dl (13.5-17.5); LYMPH # 1.9 10^3/uL (1.5-5.0); LYMPH % 18.5 % (24.0-44.0); MEAN CORPUSCULAR HGB CONC 32.2 g/dl (32.0-36.5); MEAN CORPUSCULAR VOLUME 93.2 fl (80.0-96.0); MONO # 1.1 10^3/uL (0.0-0.8); NEUTROPHILS # 6.9 10^3/uL (1.5-8.5); NEUTROPHILS % 67.2 % (36.0-66.0); PLATELET COUNT, AUTOMATED 206 10^3/uL (150-450); RED BLOOD COUNT 4.86 10^6/uL (4.30-6.10); WHITE BLOOD COUNT 10.3 10^3/uL (4.0-10.0)
[2020-08-10 18:50] LABS: ERYTHROCYTE SEDIMENTATION RATE 10 mm/hr (0-20)
== END ==
LOC: M LABDRAWC 16:52 → M PLALAB 16:52
PROVIDERS: ATTEND Orthopaedic Surgery
DX: M25.572 Pain in left ankle and joints of left foot (principal)

== ENCOUNTER → 2020-11-01 | Outpatient (REF) | payer MEDICARE, OTHER ==
[~2020-11-01] MED LIST changes: +LOSA50TA28 PO; -LOSA50TA88 PO
== END ==
LOC: M SFHCCLAY 11:08
PROVIDERS: ATTEND Nurse Practitioner Family
DX: R97.20 Elevated prostate specific antigen [PSA] (principal)

== ENCOUNTER → 2021-09-05 | Outpatient (CLI) | payer MEDICARE, OTHER | LOC: M RAD 10:17 | PROVIDERS: ATTEND Internal Medicine Cardiovascular Disease | DX: I71.2 Thoracic aortic aneurysm, without rupture (principal); J44.9 Chronic obstructive pulmonary disease, unspecified; K80.20 Calculus of gallbladder without cholecystitis without obstruction ==